=== PATIENT | male | born 1935 | race Caucasian/White ===

== ENCOUNTER → 2017-01-04 | Outpatient (REF) | payer MEDICARE, OTHER | LOC: M LAB REF 19:12 | PROVIDERS: ATTEND Surgery | DX: L72.12 Trichodermal cyst (principal) ==

== ENCOUNTER → 2018-01-10 | Outpatient (REF) | payer MEDICARE, OTHER ==
[2018-01-10 18:23] LABS: APPEARANCE, URINE CLEAR (CLEAR); BACTERIA, URINE AUTO NEGATIVE (NEGATIVE); BILIRUBIN, URINE AUTO NEGATIVE (NEGATIVE); BLOOD, URINE BLOOD NEGATIVE (NEGATIVE); COLOR, URINE YELLOW (YELLOW); GLUCOSE, URINE (UA) AUTO 3+ mg/dL (NEGATIVE); KETONE, URINE AUTO NEGATIVE (NEGATIVE); LEUKOCYTE ESTERASE, URINE AUTO NEGATIVE (NEGATIVE); MUCUS, URINE SMALL (NEGATIVE); NITRITE, URINE AUTO NEGATIVE (NEGATIVE); PROTEIN, URINE AUTO NEGATIVE (NEGATIVE); RBC, URINE AUTO 1 /HPF (0-3); SPECIFIC GRAVITY URINE AUTO 1.022 (1.002-1.035); SQUAMOUS EPITHELIAL CELL UR AU 0 /HPF (0-6); UROBILINOGEN, URINE AUTO 0.2 mg/dL (0.0-2.0); WBC, URINE AUTO 1 /HPF (0-3)
== END ==
LOC: M SMT 16:55
DX: N40.0 Benign prostatic hyperplasia without lower urinary tract symptoms (principal)
CPT/HCPCS: 81001

== ENCOUNTER → 2018-03-04 | Outpatient (REF) | payer MEDICARE ==
[2018-03-04 19:11] LABS: APPEARANCE, URINE HAZY (CLEAR); BACTERIA, URINE AUTO 1+ (NEGATIVE); BILIRUBIN, URINE AUTO NEGATIVE (NEGATIVE); BLOOD, URINE BLOOD 2+ (NEGATIVE); COLOR, URINE YELLOW (YELLOW); GLUCOSE, URINE (UA) AUTO 3+ mg/dL (NEGATIVE); KETONE, URINE AUTO NEGATIVE (NEGATIVE); LEUKOCYTE ESTERASE, URINE AUTO NEGATIVE (NEGATIVE); MUCUS, URINE SMALL (NEGATIVE); NITRITE, URINE AUTO NEGATIVE (NEGATIVE); PROTEIN, URINE AUTO NEGATIVE (NEGATIVE); RBC, URINE AUTO 10 /HPF (0-3); SPECIFIC GRAVITY URINE AUTO 1.018 (1.002-1.035); SQUAMOUS EPITHELIAL CELL UR AU 0 /HPF (0-6); UROBILINOGEN, URINE AUTO 0.2 mg/dL (0.0-2.0); WBC, URINE AUTO 4 /HPF (0-3)
== END ==
LOC: M SMT 17:06
DX: N39.0 Urinary tract infection, site not specified (principal)
CPT/HCPCS: 81001

== ENCOUNTER 2018-05-13 05:55 | Day surgery (SDC) | payer MEDICARE, BC ==
[2018-05-13] MEDS: BOTULINUM INJ 100 UNITS (J0585) As Ordered (06:45)
[2018-05-13 06:46] LABS: BEDSIDE GLUCOSE 220 MG/DL (83-110)
[2018-05-13] MEDS ORDERED: METOPROLOL SUCC *XL* 25MG TAB (TopROL *XL*) As Ordered (06:59)
[2018-05-13] MEDS ORDERED: METOPROLOL SUCC *XL* 25MG TAB (TopROL *XL*) PO (07:00)
[2018-05-13] MEDS: LR 1,000 ML IV (07:02)
[2018-05-13] MEDS ORDERED: ePHEDrine SULFATE 25 MG/5 ML(5MG/ML) SYRINGE As Ordered (08:01)
[2018-05-13] MEDS ORDERED: LIDOCAINE 2% INJ 100 MG/5 ML SDV (FOR ANES.) As Ordered (08:01)
[2018-05-13] MEDS ORDERED: PROPOFOL 200 MG/20 ML VIAL As Ordered (08:01)
[2018-05-13] MEDS ORDERED: fentaNYL 100 MCG/2 ML INJECTION (J3010) As Ordered (08:01)
[2018-05-13] MEDS ORDERED: ONDANSETRON 4MG/2ML VIAL (J2405) As Ordered (08:01)
[2018-05-13] MEDS ORDERED: PHENYLephrine HCL 500 MCG/5 ML (100MCG/ML) SYRINGE (J2370) As Ordered (08:04)
[2018-05-13 08:32] LABS: BEDSIDE GLUCOSE 210 MG/DL (83-110)
[2018-05-13] MEDS ORDERED: LR 1,000 ML IV (08:45)
[2018-05-13] MEDS ORDERED: ACETAMINOPHEN TAB 650MG DOSE (2X325MG) PO (08:45)
[2018-05-13] MEDS ORDERED: fentaNYL 100 MCG/2 ML INJECTION (J3010) IV (08:45)
[2018-05-13] MEDS ORDERED: ONDANSETRON 4MG/2ML VIAL (J2405) IV (08:45)
== END 2018-05-13 10:13 | disposition home or self-care (01) ==
LOC: M SDC 05:55
DX: N21.0 Calculus in bladder (principal); I25.10 Atherosclerotic heart disease of native coronary artery without angina pectoris; I10 Essential (primary) hypertension; E11.9 Type 2 diabetes mellitus without complications; E78.5 Hyperlipidemia, unspecified; E03.9 Hypothyroidism, unspecified; N40.0 Benign prostatic hyperplasia without lower urinary tract symptoms; Z95.1 Presence of aortocoronary bypass graft; Z79.82 Long term (current) use of aspirin; Z79.02 Long term (current) use of antithrombotics/antiplatelets
CPT/HCPCS: 52318

== ENCOUNTER → 2018-11-26 | Outpatient (REF) | payer MEDICARE, BC ==
[~2018-11-26] MED LIST: ASPI81TA85 PO; CART120C PO; DITR1TAB PO; FINA5TAB2 PO; FLOM0.4C39 PO; GLIM2TAB PO; JANU100T PO; KEFL250C11 PO; LEVO75TA4 PO; METF500T13 PO; METO1TAB32 PO; PRAD150C PO; PRAV40TA2 PO
[2018-11-26 18:35] LABS: APPEARANCE, URINE HAZY (CLEAR); BACTERIA, URINE AUTO NEGATIVE (NEGATIVE); BILIRUBIN, URINE AUTO NEGATIVE (NEGATIVE); BLOOD, URINE BLOOD NEGATIVE (NEGATIVE); CALCIUM OXALATE CRYSTALS MODERATE; COLOR, URINE YELLOW (YELLOW); GLUCOSE, URINE (UA) AUTO 1+ mg/dL (NEGATIVE); KETONE, URINE AUTO NEGATIVE (NEGATIVE); LEUKOCYTE ESTERASE, URINE AUTO 2+ (NEGATIVE); MUCUS, URINE SMALL (NEGATIVE); NITRITE, URINE AUTO NEGATIVE (NEGATIVE); PROTEIN, URINE AUTO NEGATIVE (NEGATIVE); RBC, URINE AUTO 4 /HPF (0-3); SPECIFIC GRAVITY URINE AUTO 1.023 (1.002-1.035); SQUAMOUS EPITHELIAL CELL UR AU 0 /HPF (0-6); UROBILINOGEN, URINE AUTO 0.2 mg/dL (0.0-2.0); WBC, URINE AUTO 3 /HPF (0-3)
== END ==
LOC: M SMT 17:38
PROVIDERS: ATTEND Nurse Practitioner Women's Health
DX: N40.1 Benign prostatic hyperplasia with lower urinary tract symptoms (principal)
CPT/HCPCS: 81001; 87086; G0463

== ENCOUNTER → 2020-07-22 | Outpatient (REF) | payer MEDICARE, BC ==
[~2020-07-22] MED LIST changes: -ASPI81TA85 PO; +ASPI81TA86 PO; -GLIM2TAB PO; +GLIM2TAB4 PO; -PRAD150C PO; +PRAD150C6 PO
[2020-07-22 17:34] LABS: APPEARANCE, URINE HAZY (CLEAR); BACTERIA, URINE AUTO NEGATIVE (NEGATIVE); BILIRUBIN, URINE AUTO NEGATIVE (NEGATIVE); BLOOD, URINE BLOOD NEGATIVE (NEGATIVE); CALCIUM OXALATE CRYSTALS LARGE; COLOR, URINE YELLOW (YELLOW); GLUCOSE, URINE (UA) AUTO 3+ mg/dL (NEGATIVE); KETONE, URINE AUTO NEGATIVE (NEGATIVE); LEUKOCYTE ESTERASE, URINE AUTO NEGATIVE (NEGATIVE); MUCUS, URINE SMALL (NEGATIVE); NITRITE, URINE AUTO NEGATIVE (NEGATIVE); PROTEIN, URINE AUTO NEGATIVE (NEGATIVE); RBC, URINE AUTO 2 /HPF (0-3); SQUAMOUS EPITHELIAL CELL UR AU 0 /HPF (0-6); UROBILINOGEN, URINE AUTO 0.2 mg/dL (0.0-2.0); WBC, URINE AUTO 3 /HPF (0-3)
== END ==
LOC: M SMT 16:56
PROVIDERS: ATTEND Nurse Practitioner Women's Health
DX: N40.1 Benign prostatic hyperplasia with lower urinary tract symptoms (principal)
CPT/HCPCS: 51798; 81001; 87086; G0463

== ENCOUNTER → 2022-09-01 | Outpatient (CLI) | payer MEDICARE, BC | LOC: M RAD 12:27 | PROVIDERS: ATTEND Surgery | DX: L89.610 Pressure ulcer of right heel, unstageable (principal) ==

== ENCOUNTER 2022-09-20 08:51 | Inpatient (IN) | payer MEDICARE, BC ==
[~2022-09-20] VITALS: Ht 182.9 cm; Wt 90.9 kg
[2022-09-20] MEDS ORDERED: DABI75CA (09:15)
[2022-09-20] MEDS ORDERED: SANT250O8 TOP (09:15)
[2022-09-20] MEDS ORDERED: CIPR250T3 PO (09:15)
[2022-09-20 13:27] LABS: BASO % 0.4 % (0.0-1.0); EOS # 0.1 10^3/uL (0.0-0.5); EOS % 1.2 % (0.0-3.0); HEMATOCRIT 34.4 % (42.0-52.0); HEMOGLOBIN 10.7 g/dl (13.5-17.5); LYMPH % 11.5 % (24.0-44.0); MEAN CORPUSCULAR HEMOGLOBIN 26.1 pg (27.0-33.0); MEAN CORPUSCULAR HGB CONC 31.1 g/dl (32.0-36.5); MEAN CORPUSCULAR VOLUME 83.9 fl (80.0-96.0); MONO # 0.6 10^3/uL (0.0-0.8); MONO % 7.5 % (2.0-8.0); NEUTROPHILS # 6.7 10^3/uL (1.5-8.5); PLATELET COUNT, AUTOMATED 306 10^3/uL (150-450); WHITE BLOOD COUNT 8.4 10^3/uL (4.0-10.0)
[2022-09-20 13:37] LABS: ERYTHROCYTE SEDIMENTATION RATE 82 mm/hr (0-20)
[2022-09-20 13:48] LABS: ALBUMIN 2.7 G/DL (3.2-5.2); ALKALINE PHOSPHATASE 72 U/L (46-116); ALT/SGPT 14 U/L (7.0-40); AST/SGOT 21 U/L (<34); BILIRUBIN,DIRECT 0.1 MG/DL (<0.4); BILIRUBIN,TOTAL 0.4 MG/DL (0.3-1.2); BLOOD UREA NITROGEN 25 MG/DL (9-23); CALCIUM LEVEL 8.4 MG/DL (8.3-10.6); CARBON DIOXIDE LEVEL 26 MMOL/L (20-31); CHLORIDE LEVEL 103 MMOL/L (98-107); CREATININE FOR GFR 0.69 MG/DL (0.70-1.30); GLOMERULAR FILTRATION RATE > 60.0 (>35); GLUCOSE, FASTING 216 MG/DL (74-106); POTASSIUM SERUM 4.4 MMOL/L (3.5-5.1); SODIUM LEVEL 139 MMOL/L (136-145); TOTAL PROTEIN 6.5 G/DL (5.7-8.2)
[2022-09-20 14:00] LABS: RSV AMPLIFICATION NEGATIVE (NEGATIVE)
[2022-09-20] MEDS ORDERED: VANCOMYCIN HCL 2,000 MG in D5W 500 ML IV ONE (14:05)
[2022-09-20] MEDS ORDERED: VANCOMYCIN HCL 1,000 MG, VIAL MATE ADAPTER 1 EACH in D5W 250 ML IV ONE (14:15)
[2022-09-20] MEDS ORDERED: VANCOMYCIN HCL 750 MG, VIAL MATE ADAPTER 1 EACH in D5W 250 ML IV ONE (14:15)
[2022-09-20] MEDS ORDERED: MORPHINE 4 MG/ML 1ML VIAL IV PRN (16:30)
[2022-09-20] MEDS: PIPERACILLIN/TAZOBACTAM SOD 3.375 GM in D5W MINI-BAG PLUS 50 ML IV SCH ×2 (17:15→22:48)
[2022-09-20] MEDS ORDERED: ELIQ5TAB PO (17:19)
[2022-09-20] MEDS ORDERED: METF-838 PO (17:19)
[2022-09-20] MEDS ORDERED: TOUJ1.2I SC (17:22)
[2022-09-20] MEDS ORDERED: HOME MED LIST COMPLETE! XX SCH ×2 (17:25)
[2022-09-20] MEDS ORDERED: PRAD150C6 PO (17:30)
[2022-09-20] MEDS ORDERED: LIDOCAINE 5% (LIDODERM) PATCH TD ONE (18:30)
[2022-09-20] MEDS: ACETAMINOPHEN 500 MG TAB PO SCH (19:13)
[2022-09-20] MEDS: DICLOFENAC EPOLAMINE 1.3% PATCH TOP SCH (21:00)
[2022-09-20] MEDS: TAMSULOSIN 0.4 MG CAP PO SCH (21:32)
[2022-09-20] MEDS: FINASTERIDE 5MG TAB PO SCH (21:32)
[2022-09-20] MEDS: MIRALAX *UNIT DOSE* 17GM PACKET PO SCH (21:32)
[2022-09-20] MEDS: METOPROLOL SUCC *XL* 25MG TAB (TopROL *XL*) PO SCH (21:32)
[2022-09-20] MEDS: oxyCODONE 5MG TAB PO PRN (22:49)
[2022-09-21] VITALS (7 sets, daily range): BP systolic 101–136; BP diastolic 61–82
[2022-09-21] MEDS: LEVOTHYROXINE 75MCG TABLET (0.075MG) PO SCH (05:01)
[2022-09-21] MEDS: ACETAMINOPHEN 500 MG TAB PO SCH ×4 (05:02→17:20)
[2022-09-21] MEDS: PIPERACILLIN/TAZOBACTAM SOD 3.375 GM in D5W MINI-BAG PLUS 50 ML IV SCH ×4 (05:02→21:57)
[2022-09-21 06:39] LABS: BASO % 0.5 % (0.0-1.0); EOS # 0.2 10^3/uL (0.0-0.5); EOS % 3.7 % (0.0-3.0); HEMATOCRIT 30.9 % (42.0-52.0); HEMOGLOBIN 9.7 g/dl (13.5-17.5); LYMPH # 0.9 10^3/uL (1.5-5.0); LYMPH % 14.4 % (24.0-44.0); MEAN CORPUSCULAR HEMOGLOBIN 26.1 pg (27.0-33.0); MEAN CORPUSCULAR HGB CONC 31.4 g/dl (32.0-36.5); MEAN CORPUSCULAR VOLUME 83.3 fl (80.0-96.0); MONO # 0.7 10^3/uL (0.0-0.8); MONO % 10.8 % (2.0-8.0); NEUTROPHILS # 4.4 10^3/uL (1.5-8.5); NEUTROPHILS % 70.3 % (36.0-66.0); PLATELET COUNT, AUTOMATED 251 10^3/uL (150-450); RED BLOOD COUNT 3.71 10^6/uL (4.30-6.10); WHITE BLOOD COUNT 6.2 10^3/uL (4.0-10.0)
[2022-09-21 07:15] LABS: BLOOD UREA NITROGEN 19 MG/DL (9-23); CALCIUM LEVEL 8.1 MG/DL (8.3-10.6); CARBON DIOXIDE LEVEL 26 MMOL/L (20-31); CHLORIDE LEVEL 103 MMOL/L (98-107); CREATININE FOR GFR 0.71 MG/DL (0.70-1.30); GLOMERULAR FILTRATION RATE > 60.0 (>35); GLUCOSE, FASTING 86 MG/DL (74-106); SODIUM LEVEL 138 MMOL/L (136-145)
[2022-09-21 07:25] LABS: HEMOGLOBIN A1c 8.6 % (4.0-6.0)
[2022-09-21] MEDS: DICLOFENAC EPOLAMINE 1.3% PATCH TOP SCH ×2 (09:00→21:00)
[2022-09-21] MEDS ORDERED: LEVEMIR (INSULIN DETEMIR) 1 UNITS/0.01ML SC SCH (09:00)
[2022-09-21] MEDS ORDERED: ONDANSETRON 4MG 2ML VIAL As Ordered ONE (11:00)
[2022-09-21] MEDS ORDERED: propofoL 200 MG/20 ML VIAL As Ordered ONE (11:00)
[2022-09-21] MEDS ORDERED: BUPIVACAINE HCL 0.5% 30ML VIAL As Ordered ONE (11:05)
[2022-09-21] MEDS ORDERED: LIDOCAINE 1% SDV 30ML VIAL As Ordered ONE (11:05)
[2022-09-21] MEDS ORDERED: LIDOCAINE 2% 100MG/5ML SDV (FOR ANES.) As Ordered ONE (11:18)
[2022-09-21] MEDS: MIRALAX *UNIT DOSE* 17GM PACKET PO SCH ×2 (14:00→21:00)
[2022-09-21] MEDS: ATORVASTATIN 20 MG TAB PO SCH (15:04)
[2022-09-21] MEDS: ASPIRIN 81MG CHEW TABLET PO SCH (15:04)
[2022-09-21] MEDS: GABAPENTIN 300 MG CAP PO SCH (15:04)
[2022-09-21] MEDS: METOPROLOL SUCC *XL* 25MG TAB (TopROL *XL*) PO SCH (21:00)
[2022-09-21] MEDS: INSULIN LISPRO (NovoLOG) PER UNIT SC SCH (21:00)
[2022-09-21] MEDS: LEVEMIR (INSULIN DETEMIR) 1 UNITS/0.01ML SC SCH (21:00)
[2022-09-21] MEDS ORDERED: DEXTROSE 50% 50ML SYRINGE IV PRN (21:50)
[2022-09-21] MEDS ORDERED: GLUCOSE 4GM CHEW TABLET PO PRN (21:50)
[2022-09-21] MEDS ORDERED: GLUCAGON INJ 1MG VIAL SC PRN (21:50)
[2022-09-21] MEDS: FINASTERIDE 5MG TAB PO SCH (21:56)
[2022-09-21] MEDS: TAMSULOSIN 0.4 MG CAP PO SCH (21:56)
[2022-09-22 02:00] VITALS: BP 140/67
[2022-09-22] MEDS: PIPERACILLIN/TAZOBACTAM SOD 3.375 GM in D5W MINI-BAG PLUS 50 ML IV SCH ×4 (04:48→23:45)
[2022-09-22] MEDS: LEVOTHYROXINE 75MCG TABLET (0.075MG) PO SCH (05:26)
[2022-09-22] MEDS: ACETAMINOPHEN 500 MG TAB PO SCH ×5 (05:27→23:46)
[2022-09-22 05:57] VITALS: BP 132/66
[2022-09-22 06:36] LABS: BASO % 0.4 % (0.0-1.0); EOS # 0.2 10^3/uL (0.0-0.5); EOS % 2.7 % (0.0-3.0); HEMOGLOBIN 9.7 g/dl (13.5-17.5); LYMPH % 13.2 % (24.0-44.0); MEAN CORPUSCULAR HEMOGLOBIN 25.9 pg (27.0-33.0); MEAN CORPUSCULAR HGB CONC 31.3 g/dl (32.0-36.5); MEAN CORPUSCULAR VOLUME 82.9 fl (80.0-96.0); MONO # 0.8 10^3/uL (0.0-0.8); MONO % 10.3 % (2.0-8.0); NEUTROPHILS # 5.3 10^3/uL (1.5-8.5); NEUTROPHILS % 73.1 % (36.0-66.0); PLATELET COUNT, AUTOMATED 268 10^3/uL (150-450); RED BLOOD COUNT 3.74 10^6/uL (4.30-6.10); WHITE BLOOD COUNT 7.3 10^3/uL (4.0-10.0)
[2022-09-22 07:03] LABS: BLOOD UREA NITROGEN 17 MG/DL (9-23); CARBON DIOXIDE LEVEL 26 MMOL/L (20-31); CHLORIDE LEVEL 102 MMOL/L (98-107); CREATININE FOR GFR 0.76 MG/DL (0.70-1.30); GLOMERULAR FILTRATION RATE > 60.0 (>35); GLUCOSE, FASTING 157 MG/DL (74-106); POTASSIUM SERUM 4.2 MMOL/L (3.5-5.1); SODIUM LEVEL 136 MMOL/L (136-145)
[2022-09-22 07:41] LABS: ERYTHROCYTE SEDIMENTATION RATE 44 mm/hr (0-20)
[2022-09-22] MEDS: SANTYL OINT 30GM TOP SCH (08:12)
[2022-09-22] MEDS: MIRALAX *UNIT DOSE* 17GM PACKET PO SCH ×2 (08:12→20:56)
[2022-09-22] MEDS: INSULIN LISPRO (NovoLOG) PER UNIT SC SCH ×4 (08:14→20:56)
[2022-09-22] MEDS: GABAPENTIN 300 MG CAP PO SCH (08:14)
[2022-09-22] MEDS: ASPIRIN 81MG CHEW TABLET PO SCH (08:18)
[2022-09-22] MEDS: ATORVASTATIN 20 MG TAB PO SCH (08:19)
[2022-09-22] MEDS: oxyCODONE 5MG TAB PO PRN ×2 (08:19→17:59)
[2022-09-22] MEDS: DICLOFENAC EPOLAMINE 1.3% PATCH TOP SCH ×2 (08:20→21:00)
[2022-09-22 11:25] LABS: INR 1.15; PROTHROMBIN TIME 14.9 SECONDS (12.5-14.5)
[2022-09-22 11:26] LABS: PARTIAL THROMBOPLASTIN TIME 45.5 SECONDS (24.8-34.2)
[2022-09-22] MEDS: DABIGATRAN ETEXILATE 75 MG CAP (PRADAXA) PO SCH ×2 (13:10→20:56)
[2022-09-22 14:00] VITALS: BP 132/69
[2022-09-22 20:19] VITALS: BP 125/65
[2022-09-22] MEDS: LEVEMIR (INSULIN DETEMIR) 1 UNITS/0.01ML SC SCH (20:55)
[2022-09-22] MEDS: TAMSULOSIN 0.4 MG CAP PO SCH (20:55)
[2022-09-22] MEDS: METOPROLOL SUCC *XL* 25MG TAB (TopROL *XL*) PO SCH (20:56)
[2022-09-22] MEDS: FINASTERIDE 5MG TAB PO SCH (20:56)
[2022-09-23 05:26] VITALS: BP 142/67
[2022-09-23] MEDS: PIPERACILLIN/TAZOBACTAM SOD 3.375 GM in D5W MINI-BAG PLUS 50 ML IV SCH ×4 (05:40→23:09)
[2022-09-23] MEDS: LEVOTHYROXINE 75MCG TABLET (0.075MG) PO SCH (05:40)
[2022-09-23] MEDS: ACETAMINOPHEN 500 MG TAB PO SCH ×4 (05:41→23:09)
[2022-09-23 06:42] LABS: BASO % 0.1 % (0.0-1.0); EOS # 0.1 10^3/uL (0.0-0.5); EOS % 1.7 % (0.0-3.0); HEMATOCRIT 30.9 % (42.0-52.0); HEMOGLOBIN 9.8 g/dl (13.5-17.5); LYMPH % 13.1 % (24.0-44.0); MEAN CORPUSCULAR HEMOGLOBIN 26.2 pg (27.0-33.0); MEAN CORPUSCULAR HGB CONC 31.7 g/dl (32.0-36.5); MEAN CORPUSCULAR VOLUME 82.6 fl (80.0-96.0); MONO # 0.9 10^3/uL (0.0-0.8); NEUTROPHILS # 5.7 10^3/uL (1.5-8.5); NEUTROPHILS % 73.7 % (36.0-66.0); PLATELET COUNT, AUTOMATED 276 10^3/uL (150-450); RED BLOOD COUNT 3.74 10^6/uL (4.30-6.10); WHITE BLOOD COUNT 7.8 10^3/uL (4.0-10.0)
[2022-09-23 07:05] LABS: BLOOD UREA NITROGEN 14 MG/DL (9-23); CALCIUM LEVEL 8.1 MG/DL (8.3-10.6); CARBON DIOXIDE LEVEL 23 MMOL/L (20-31); CHLORIDE LEVEL 102 MMOL/L (98-107); CREATININE FOR GFR 0.67 MG/DL (0.70-1.30); GLOMERULAR FILTRATION RATE > 60.0 (>35); GLUCOSE, FASTING 171 MG/DL (74-106); SODIUM LEVEL 135 MMOL/L (136-145)
[2022-09-23] MEDS: ASPIRIN 81MG CHEW TABLET PO SCH (08:09)
[2022-09-23] MEDS: ATORVASTATIN 20 MG TAB PO SCH (08:09)
[2022-09-23] MEDS: INSULIN LISPRO (NovoLOG) PER UNIT SC SCH ×4 (08:09→21:00)
[2022-09-23] MEDS: DABIGATRAN ETEXILATE 75 MG CAP (PRADAXA) PO SCH (08:09)
[2022-09-23] MEDS: DICLOFENAC EPOLAMINE 1.3% PATCH TOP SCH ×2 (08:10→21:00)
[2022-09-23] MEDS: GABAPENTIN 300 MG CAP PO SCH (08:10)
[2022-09-23] MEDS: MIRALAX *UNIT DOSE* 17GM PACKET PO SCH ×2 (08:11→20:53)
[2022-09-23 10:15] VITALS: BP 133/67
[2022-09-23 14:30] VITALS: BP 139/66
[2022-09-23] MEDS: TAMSULOSIN 0.4 MG CAP PO SCH (20:46)
[2022-09-23] MEDS: LEVEMIR (INSULIN DETEMIR) 1 UNITS/0.01ML SC SCH (20:46)
[2022-09-23] MEDS: FINASTERIDE 5MG TAB PO SCH (20:46)
[2022-09-23] MEDS: METOPROLOL SUCC *XL* 25MG TAB (TopROL *XL*) PO SCH (20:48)
[2022-09-23 22:00] VITALS: BP 136/66
[2022-09-24] MEDS: PIPERACILLIN/TAZOBACTAM SOD 3.375 GM in D5W MINI-BAG PLUS 50 ML IV SCH ×3 (05:04→17:38)
[2022-09-24] MEDS: ACETAMINOPHEN 500 MG TAB PO SCH ×3 (05:05→17:38)
[2022-09-24] MEDS: LEVOTHYROXINE 75MCG TABLET (0.075MG) PO SCH (05:05)
[2022-09-24 05:15] LABS: BASO % 0.2 % (0.0-1.0); EOS # 0.2 10^3/uL (0.0-0.5); EOS % 2.7 % (0.0-3.0); HEMOGLOBIN 9.7 g/dl (13.5-17.5); LYMPH % 11.6 % (24.0-44.0); MEAN CORPUSCULAR HEMOGLOBIN 25.9 pg (27.0-33.0); MEAN CORPUSCULAR HGB CONC 31.3 g/dl (32.0-36.5); MEAN CORPUSCULAR VOLUME 82.7 fl (80.0-96.0); MONO # 0.7 10^3/uL (0.0-0.8); MONO % 8.2 % (2.0-8.0); NEUTROPHILS # 6.3 10^3/uL (1.5-8.5); NEUTROPHILS % 76.8 % (36.0-66.0); PLATELET COUNT, AUTOMATED 272 10^3/uL (150-450); RED BLOOD COUNT 3.75 10^6/uL (4.30-6.10); WHITE BLOOD COUNT 8.2 10^3/uL (4.0-10.0)
[2022-09-24 05:34] LABS: ERYTHROCYTE SEDIMENTATION RATE 77 mm/hr (0-20)
[2022-09-24 05:47] LABS: BLOOD UREA NITROGEN 18 MG/DL (9-23); CALCIUM LEVEL 7.8 MG/DL (8.3-10.6); CARBON DIOXIDE LEVEL 28 MMOL/L (20-31); CHLORIDE LEVEL 102 MMOL/L (98-107); CREATININE FOR GFR 0.68 MG/DL (0.70-1.30); GLOMERULAR FILTRATION RATE > 60.0 (>35); GLUCOSE, FASTING 197 MG/DL (74-106); POTASSIUM SERUM 4.4 MMOL/L (3.5-5.1); SODIUM LEVEL 136 MMOL/L (136-145)
[2022-09-24 06:00] VITALS: BP 132/83
[2022-09-24] MEDS ORDERED: LevoFLOXacin 750 MG TABLET PO SCH (06:00)
[2022-09-24] MEDS: INSULIN LISPRO (NovoLOG) PER UNIT SC SCH ×4 (08:26→20:36)
[2022-09-24] MEDS: MIRALAX *UNIT DOSE* 17GM PACKET PO SCH ×2 (08:27→20:50)
[2022-09-24] MEDS: GABAPENTIN 300 MG CAP PO SCH (08:27)
[2022-09-24] MEDS: SANTYL OINT 30GM TOP SCH (08:27)
[2022-09-24] MEDS: ATORVASTATIN 20 MG TAB PO SCH (08:27)
[2022-09-24] MEDS: DICLOFENAC EPOLAMINE 1.3% PATCH TOP SCH ×2 (08:27→20:51)
[2022-09-24] MEDS: METAMUCIL (PSYLLIUM) PACKET PO SCH ×2 (09:00→20:50)
[2022-09-24] MEDS ORDERED: metroNIDAZOLE (FLAGYL) 500MG TABLET PO SCH (09:00)
[2022-09-24] MEDS ORDERED: ISOVUE-370 76% 100ML VIAL As Ordered ONE (09:55)
[2022-09-24] MEDS ORDERED: VANCOMYCIN HCL IV SCH (11:45)
[2022-09-24] MEDS ORDERED: FLUID PLACE HOLDER IV SCH (11:45)
[2022-09-24] MEDS ORDERED: SENNA 8.6 MG TAB (SENOKOT) PO PRN (11:55)
[2022-09-24 14:30] VITALS: BP 122/53
[2022-09-24] MEDS ORDERED: VANCOMYCIN HCL 1,000 MG, VIAL MATE ADAPTER 1 EACH in D5W 250 ML IV ONE (15:00)
[2022-09-24] MEDS: VANCOMYCIN HCL 1,000 MG, VIAL MATE ADAPTER 1 EACH in D5W 250 ML IV SCH (20:44)
[2022-09-24] MEDS: FINASTERIDE 5MG TAB PO SCH (20:45)
[2022-09-24] MEDS: LEVEMIR (INSULIN DETEMIR) 1 UNITS/0.01ML SC SCH (20:45)
[2022-09-24] MEDS: TAMSULOSIN 0.4 MG CAP PO SCH (20:46)
[2022-09-24] MEDS: METOPROLOL SUCC *XL* 25MG TAB (TopROL *XL*) PO SCH (20:50)
[2022-09-24 22:00] VITALS: BP 125/63
[2022-09-24] MEDS: oxyCODONE 5MG TAB PO PRN (22:18)
[2022-09-25] MEDS: ACETAMINOPHEN 500 MG TAB PO SCH ×4 (00:47→17:06)
[2022-09-25] MEDS: PIPERACILLIN/TAZOBACTAM SOD 3.375 GM in D5W MINI-BAG PLUS 50 ML IV SCH ×4 (00:48→17:07)
[2022-09-25] MEDS: LEVOTHYROXINE 75MCG TABLET (0.075MG) PO SCH (05:38)
[2022-09-25 06:00] VITALS: BP 127/63
[2022-09-25 07:23] LABS: BASO % 0.3 % (0.0-1.0); EOS # 0.2 10^3/uL (0.0-0.5); HEMATOCRIT 28.9 % (42.0-52.0); LYMPH # 1.1 10^3/uL (1.5-5.0); LYMPH % 18.4 % (24.0-44.0); MEAN CORPUSCULAR HEMOGLOBIN 25.9 pg (27.0-33.0); MEAN CORPUSCULAR HGB CONC 31.1 g/dl (32.0-36.5); MONO # 0.5 10^3/uL (0.0-0.8); MONO % 9.4 % (2.0-8.0); NEUTROPHILS # 3.9 10^3/uL (1.5-8.5); NEUTROPHILS % 67.6 % (36.0-66.0); PLATELET COUNT, AUTOMATED 272 10^3/uL (150-450); RED BLOOD COUNT 3.48 10^6/uL (4.30-6.10); WHITE BLOOD COUNT 5.8 10^3/uL (4.0-10.0)
[2022-09-25 07:55] LABS: BLOOD UREA NITROGEN 14 MG/DL (9-23); CALCIUM LEVEL 7.9 MG/DL (8.3-10.6); CARBON DIOXIDE LEVEL 24 MMOL/L (20-31); CHLORIDE LEVEL 103 MMOL/L (98-107); CREATININE FOR GFR 0.63 MG/DL (0.70-1.30); GLOMERULAR FILTRATION RATE > 60.0 (>35); GLUCOSE, FASTING 247 MG/DL (74-106); POTASSIUM SERUM 4.6 MMOL/L (3.5-5.1); SODIUM LEVEL 137 MMOL/L (136-145)
[2022-09-25] MEDS: GABAPENTIN 300 MG CAP PO SCH (08:31)
[2022-09-25] MEDS: ATORVASTATIN 20 MG TAB PO SCH (08:31)
[2022-09-25] MEDS: VANCOMYCIN HCL 1,000 MG, VIAL MATE ADAPTER 1 EACH in D5W 250 ML IV SCH ×2 (08:32→20:37)
[2022-09-25] MEDS: INSULIN LISPRO (NovoLOG) PER UNIT SC SCH ×4 (08:32→20:35)
[2022-09-25] MEDS: DICLOFENAC EPOLAMINE 1.3% PATCH TOP SCH ×2 (08:32→20:35)
[2022-09-25] MEDS: MIRALAX *UNIT DOSE* 17GM PACKET PO SCH ×2 (08:33→20:52)
[2022-09-25] MEDS: METAMUCIL (PSYLLIUM) PACKET PO SCH ×2 (08:33→20:52)
[2022-09-25 14:00] VITALS: BP 132/68
[2022-09-25] MEDS: LEVEMIR (INSULIN DETEMIR) 1 UNITS/0.01ML SC SCH (20:34)
[2022-09-25] MEDS: METOPROLOL SUCC *XL* 25MG TAB (TopROL *XL*) PO SCH (20:35)
[2022-09-25] MEDS: TAMSULOSIN 0.4 MG CAP PO SCH (20:35)
[2022-09-25] MEDS: FINASTERIDE 5MG TAB PO SCH (20:35)
[2022-09-25] MEDS: NYSTATIN 100,000 UNITS/GM TOPICAL PWD 15GM TOP SCH (20:36)
[2022-09-25 22:05] VITALS: BP 133/69
[2022-09-26] MEDS: PIPERACILLIN/TAZOBACTAM SOD 3.375 GM in D5W MINI-BAG PLUS 50 ML IV SCH ×3 (00:41→12:47)
[2022-09-26] MEDS: ACETAMINOPHEN 500 MG TAB PO SCH ×3 (00:41→12:46)
[2022-09-26 05:05] VITALS: BP 139/63
[2022-09-26] MEDS: LEVOTHYROXINE 75MCG TABLET (0.075MG) PO SCH (05:24)
[2022-09-26 07:17] LABS: BASO % 0.4 % (0.0-1.0); EOS # 0.2 10^3/uL (0.0-0.5); HEMOGLOBIN 9.7 g/dl (13.5-17.5); MEAN CORPUSCULAR HEMOGLOBIN 25.9 pg (27.0-33.0); MEAN CORPUSCULAR HGB CONC 31.3 g/dl (32.0-36.5); MEAN CORPUSCULAR VOLUME 82.9 fl (80.0-96.0); MONO # 0.6 10^3/uL (0.0-0.8); MONO % 7.9 % (2.0-8.0); NEUTROPHILS # 5.1 10^3/uL (1.5-8.5); NEUTROPHILS % 73.3 % (36.0-66.0); PLATELET COUNT, AUTOMATED 303 10^3/uL (150-450); RED BLOOD COUNT 3.74 10^6/uL (4.30-6.10); WHITE BLOOD COUNT 6.9 10^3/uL (4.0-10.0)
[2022-09-26 07:36] LABS: VANCOMYCIN LEVEL TROUGH 12.4 UG/ML (10.0-20.0)
[2022-09-26 07:37] LABS: BLOOD UREA NITROGEN 12 MG/DL (9-23); CALCIUM LEVEL 8.3 MG/DL (8.3-10.6); CARBON DIOXIDE LEVEL 28 MMOL/L (20-31); CHLORIDE LEVEL 102 MMOL/L (98-107); CREATININE FOR GFR 0.68 MG/DL (0.70-1.30); GLOMERULAR FILTRATION RATE > 60.0 (>35); GLUCOSE, FASTING 213 MG/DL (74-106); POTASSIUM SERUM 4.4 MMOL/L (3.5-5.1); SODIUM LEVEL 137 MMOL/L (136-145)
[2022-09-26 07:44] LABS: ERYTHROCYTE SEDIMENTATION RATE 59 mm/hr (0-20)
[2022-09-26] MEDS: MIRALAX *UNIT DOSE* 17GM PACKET PO SCH (09:00)
[2022-09-26] MEDS: METAMUCIL (PSYLLIUM) PACKET PO SCH (09:00)
[2022-09-26] MEDS: VANCOMYCIN HCL 1,000 MG, VIAL MATE ADAPTER 1 EACH in D5W 250 ML IV SCH (09:23)
[2022-09-26] MEDS: INSULIN LISPRO (NovoLOG) PER UNIT SC SCH ×2 (09:23→12:47)
[2022-09-26] MEDS: GABAPENTIN 300 MG CAP PO SCH (09:25)
[2022-09-26 09:28] VITALS: BP 140/78
[2022-09-26] MEDS: ATORVASTATIN 20 MG TAB PO SCH (09:28)
[2022-09-26] MEDS: DICLOFENAC EPOLAMINE 1.3% PATCH TOP SCH (09:30)
[2022-09-26] MEDS: NYSTATIN 100,000 UNITS/GM TOPICAL PWD 15GM TOP SCH (09:33)
[2022-09-26] MEDS ORDERED: INSUDET SC (13:36)
[2022-09-26] MEDS ORDERED: GABA-282 PO (13:36)
[2022-09-26] MEDS ORDERED: OXYC-517 PO (13:36)
[2022-09-26] MEDS ORDERED: LEVO1TAB40 PO (13:38)
[2022-09-26] MEDS ORDERED: METR-265 PO (13:38)
[2022-09-26 14:00] VITALS: BP 140/75
[2022-09-26] MEDS ORDERED: metroNIDAZOLE (FLAGYL) 500MG TABLET PO SCH (14:00)
[2022-09-26] MEDS: SANTYL OINT 30GM TOP SCH (14:42)
[2022-09-26] MEDS ORDERED: LevoFLOXacin 750 MG TABLET PO SCH (18:00)
== END 2022-09-26 16:45 | DRG 622 ==
LOC: M ED 08:51 → M ED INP 16:12 → M MS5PR 09-21 13:52
PROVIDERS: ADMIT Student in an Organized Health Care Education/Training Program; ATTEND Family Medicine
PROC: 0YBN0ZZ Excision of Left Foot, Open Approach (ICD-10-PCS; 2022-09-21)
PROC: 0LBW0ZZ Excision of Left Foot Tendon, Open Approach (ICD-10-PCS; principal; 2022-09-21 07:30)
DX: E11.69 Type 2 diabetes mellitus with other specified complication (principal); L89.613 Pressure ulcer of right heel, stage 3; M86.172 Other acute osteomyelitis, left ankle and foot; L89.620 Pressure ulcer of left heel, unstageable; L89.892 Pressure ulcer of other site, stage 2; E11.622 Type 2 diabetes mellitus with other skin ulcer; E11.51 Type 2 diabetes mellitus with diabetic peripheral angiopathy without gangrene; E11.40 Type 2 diabetes mellitus with diabetic neuropathy, unspecified; I10 Essential (primary) hypertension; E03.9 Hypothyroidism, unspecified; I25.10 Atherosclerotic heart disease of native coronary artery without angina pectoris; I48.91 Unspecified atrial fibrillation; E78.00 Pure hypercholesterolemia, unspecified; N40.1 Benign prostatic hyperplasia with lower urinary tract symptoms; Z96.653 Presence of artificial knee joint, bilateral; Z95.1 Presence of aortocoronary bypass graft; Z66 Do not resuscitate; E11.621 Type 2 diabetes mellitus with foot ulcer; R31.9 Hematuria, unspecified; K59.00 Constipation, unspecified; N20.0 Calculus of kidney; Z79.84 Long term (current) use of oral hypoglycemic drugs; Z79.899 Other long term (current) drug therapy

== ENCOUNTER 2022-09-26 13:34 | Inpatient (IN) | payer MEDICARE, BC ==
[~2022-09-26] VITALS: Ht 182.9 cm; Wt 91.7 kg
[~2022-09-26 13:34] MED LIST changes: +CIPR250T3 PO; +DABI75CA; +ELIQ5TAB PO; +METF-838 PO; +SANT250O8 TOP; +TOUJ1.2I SC
[2022-09-26] MEDS ORDERED: GABA-282 PO (13:36)
[2022-09-26] MEDS ORDERED: OXYC-517 PO (13:36)
[2022-09-26] MEDS ORDERED: INSUDET SC (13:36)
[2022-09-26] MEDS ORDERED: METR-265 PO (13:38)
[2022-09-26] MEDS ORDERED: LEVO1TAB40 PO (13:38)
[2022-09-26] MEDS ORDERED: ONDANSETRON 4MG TAB PO PRN ×2 (15:15→17:00)
[2022-09-26] MEDS ORDERED: metroNIDAZOLE (FLAGYL) 500MG TABLET PO SCH (15:15)
[2022-09-26] MEDS ORDERED: oxyCODONE 5MG TAB PO PRN ×2 (15:15→17:00)
[2022-09-26] MEDS ORDERED: GLUCAGON INJ 1MG VIAL SC PRN (15:15)
[2022-09-26] MEDS ORDERED: GLUCOSE 4GM CHEW TABLET PO PRN (15:15)
[2022-09-26] MEDS ORDERED: DEXTROSE 50% 50ML SYRINGE IV PRN (15:15)
[2022-09-26 16:45] VITALS: BP 162/74
[2022-09-26] MEDS ORDERED: INSULIN LISPRO (NovoLOG) PER UNIT SC SCH ×2 (17:30→21:00)
[2022-09-26] MEDS ORDERED: HOME MED LIST COMPLETE! XX SCH (17:55)
[2022-09-26] MEDS ORDERED: LACTOBACILLUS ACIDOPHILUS CAP (BACID) PO SCH (18:00)
[2022-09-26] MEDS ORDERED: LevoFLOXacin 750 MG TABLET PO SCH (18:00)
[2022-09-26] MEDS ORDERED: PILL CUTTER 1 EACH XX PRN (18:10)
[2022-09-26] MEDS: LACTOBACILLUS ACIDOPHILUS CAP (BACID) PO SCH ×2 (18:18→21:03)
[2022-09-26] MEDS: LevoFLOXacin 750 MG TABLET PO SCH (18:18)
[2022-09-26 20:23] VITALS: BP 152/70
[2022-09-26] MEDS ORDERED: METOPROLOL SUCC *XL* 25MG TAB (TopROL *XL*) PO SCH (21:00)
[2022-09-26] MEDS: DOCUSATE SODIUM 100MG CAPSULE PO SCH (21:00)
[2022-09-26] MEDS ORDERED: LEVEMIR (INSULIN DETEMIR) 1 UNITS/0.01ML SC SCH (21:00)
[2022-09-26] MEDS ORDERED: TAMSULOSIN 0.4 MG CAP PO SCH (21:00)
[2022-09-26] MEDS ORDERED: DABIGATRAN ETEXILATE 75 MG CAP (PRADAXA) PO SCH (21:00)
[2022-09-26] MEDS: INSULIN LISPRO (NovoLOG) PER UNIT SC SCH (21:00)
[2022-09-26] MEDS ORDERED: SENNA 8.6 MG TAB (SENOKOT) PO SCH (21:00)
[2022-09-26] MEDS: ACETAMINOPHEN 500 MG TAB PO SCH (21:03)
[2022-09-26] MEDS: DABIGATRAN ETEXILATE 75 MG CAP (PRADAXA) PO SCH (21:03)
[2022-09-26] MEDS: TAMSULOSIN 0.4 MG CAP PO SCH (21:03)
[2022-09-26] MEDS: FINASTERIDE 5MG TAB PO SCH (21:04)
[2022-09-26] MEDS: METOPROLOL SUCC *XL* 25MG TAB (TopROL *XL*) PO SCH (21:04)
[2022-09-26] MEDS: SENNA 8.6 MG TAB (SENOKOT) PO SCH (21:05)
[2022-09-26] MEDS: DICLOFENAC EPOLAMINE 1.3% PATCH TOP SCH (21:05)
[2022-09-26] MEDS: NYSTATIN 100,000 UNITS/GM TOPICAL PWD 15GM TOP SCH (21:06)
[2022-09-26] MEDS: metroNIDAZOLE (FLAGYL) 500MG TABLET PO SCH (21:07)
[2022-09-27 04:53] VITALS: BP 141/68
[2022-09-27] MEDS: LEVOTHYROXINE 75MCG TABLET (0.075MG) PO SCH (05:54)
[2022-09-27] MEDS: metroNIDAZOLE (FLAGYL) 500MG TABLET PO SCH ×3 (05:54→21:06)
[2022-09-27] MEDS ORDERED: LEVOTHYROXINE 75MCG TABLET (0.075MG) PO SCH (06:00)
[2022-09-27] MEDS: ATORVASTATIN 20 MG TAB PO SCH (08:37)
[2022-09-27] MEDS: LACTOBACILLUS ACIDOPHILUS CAP (BACID) PO SCH ×4 (08:37→21:06)
[2022-09-27] MEDS: PANTOPRAZOLE 40MG TAB (PROTONIX) PO SCH (08:38)
[2022-09-27] MEDS: DABIGATRAN ETEXILATE 75 MG CAP (PRADAXA) PO SCH (08:38)
[2022-09-27] MEDS: ACETAMINOPHEN 500 MG TAB PO SCH ×3 (08:38→21:08)
[2022-09-27] MEDS: GABAPENTIN 300 MG CAP PO SCH (08:38)
[2022-09-27] MEDS: DOCUSATE SODIUM 100MG CAPSULE PO SCH ×2 (08:39→19:44)
[2022-09-27] MEDS: MIRALAX *UNIT DOSE* 17GM PACKET PO SCH (08:40)
[2022-09-27] MEDS: DICLOFENAC EPOLAMINE 1.3% PATCH TOP SCH ×2 (08:40→21:08)
[2022-09-27] MEDS: NYSTATIN 100,000 UNITS/GM TOPICAL PWD 15GM TOP SCH ×2 (08:41→21:08)
[2022-09-27] MEDS: INSULIN LISPRO (NovoLOG) PER UNIT SC SCH ×4 (08:43→20:38)
[2022-09-27] MEDS ORDERED: MIRALAX *UNIT DOSE* 17GM PACKET PO SCH (09:00)
[2022-09-27] MEDS ORDERED: PANTOPRAZOLE 40MG TAB (PROTONIX) PO SCH (09:00)
[2022-09-27 11:16] LABS: HEMATOCRIT 32.9 % (42.0-52.0); HEMOGLOBIN 10.2 g/dl (13.5-17.5)
[2022-09-27 14:00] VITALS: BP 131/62
[2022-09-27 16:16] LABS: BASO % 0.2 % (0.0-1.0); EOS # 0.2 10^3/uL (0.0-0.5); EOS % 2.6 % (0.0-3.0); HEMATOCRIT 30.9 % (42.0-52.0); HEMOGLOBIN 9.6 g/dl (13.5-17.5); LYMPH # 1.3 10^3/uL (1.5-5.0); LYMPH % 15.2 % (24.0-44.0); MEAN CORPUSCULAR HEMOGLOBIN 25.7 pg (27.0-33.0); MEAN CORPUSCULAR HGB CONC 31.1 g/dl (32.0-36.5); MEAN CORPUSCULAR VOLUME 82.6 fl (80.0-96.0); MONO # 0.8 10^3/uL (0.0-0.8); MONO % 8.9 % (2.0-8.0); NEUTROPHILS # 6.1 10^3/uL (1.5-8.5); NEUTROPHILS % 72.6 % (36.0-66.0); PLATELET COUNT, AUTOMATED 335 10^3/uL (150-450); RED BLOOD COUNT 3.74 10^6/uL (4.30-6.10); WHITE BLOOD COUNT 8.4 10^3/uL (4.0-10.0)
[2022-09-27 16:48] LABS: BLOOD UREA NITROGEN 19 MG/DL (9-23); CALCIUM LEVEL 8.4 MG/DL (8.3-10.6); CARBON DIOXIDE LEVEL 28 MMOL/L (20-31); CHLORIDE LEVEL 101 MMOL/L (98-107); CREATININE FOR GFR 0.81 MG/DL (0.70-1.30); GLOMERULAR FILTRATION RATE > 60.0 (>35); GLUCOSE, FASTING 238 MG/DL (74-106); POTASSIUM SERUM 4.4 MMOL/L (3.5-5.1); SODIUM LEVEL 138 MMOL/L (136-145)
[2022-09-27] MEDS: LevoFLOXacin 750 MG TABLET PO SCH (17:26)
[2022-09-27] MEDS: SENNA 8.6 MG TAB (SENOKOT) PO SCH (19:44)
[2022-09-27 20:00] VITALS: BP 121/77
[2022-09-27] MEDS: TAMSULOSIN 0.4 MG CAP PO SCH (21:06)
[2022-09-27] MEDS: FINASTERIDE 5MG TAB PO SCH (21:06)
[2022-09-27] MEDS: LEVEMIR (INSULIN DETEMIR) 1 UNITS/0.01ML SC SCH (21:06)
[2022-09-27] MEDS: METOPROLOL SUCC *XL* 25MG TAB (TopROL *XL*) PO SCH (21:07)
[2022-09-28] MEDS: metroNIDAZOLE (FLAGYL) 500MG TABLET PO SCH ×3 (05:29→21:03)
[2022-09-28] MEDS: LEVOTHYROXINE 75MCG TABLET (0.075MG) PO SCH (05:29)
[2022-09-28 05:59] VITALS: BP 130/63
[2022-09-28] MEDS: MIRALAX *UNIT DOSE* 17GM PACKET PO SCH (07:36)
[2022-09-28] MEDS: DOCUSATE SODIUM 100MG CAPSULE PO SCH ×2 (07:36→20:58)
[2022-09-28] MEDS: INSULIN LISPRO (NovoLOG) PER UNIT SC SCH ×4 (07:44→21:00)
[2022-09-28] MEDS: LACTOBACILLUS ACIDOPHILUS CAP (BACID) PO SCH ×4 (07:45→21:03)
[2022-09-28] MEDS: GABAPENTIN 300 MG CAP PO SCH (07:45)
[2022-09-28] MEDS: metFORMIN (GLUCOPHAGE) 500MG TAB PO SCH (07:45)
[2022-09-28] MEDS: PANTOPRAZOLE 40MG TAB (PROTONIX) PO SCH (07:45)
[2022-09-28] MEDS: ATORVASTATIN 20 MG TAB PO SCH (07:45)
[2022-09-28] MEDS: ACETAMINOPHEN 500 MG TAB PO SCH ×3 (07:45→21:04)
[2022-09-28] MEDS: HEPARIN SOD (PORCINE) 5000UNITS/ML 1ML VIAL/SYRINGE SQ SCH ×2 (07:46→21:05)
[2022-09-28] MEDS: DICLOFENAC EPOLAMINE 1.3% PATCH TOP SCH ×2 (07:46→21:03)
[2022-09-28] MEDS: NYSTATIN 100,000 UNITS/GM TOPICAL PWD 15GM TOP SCH ×2 (07:47→21:05)
[2022-09-28] MEDS: SANTYL OINT 30GM TOP SCH (07:47)
[2022-09-28 14:00] VITALS: BP 130/60
[2022-09-28] MEDS: LevoFLOXacin 750 MG TABLET PO SCH (17:23)
[2022-09-28 20:00] VITALS: BP 126/57
[2022-09-28] MEDS: SENNA 8.6 MG TAB (SENOKOT) PO SCH (20:58)
[2022-09-28] MEDS: METOPROLOL SUCC *XL* 25MG TAB (TopROL *XL*) PO SCH (21:03)
[2022-09-28] MEDS: FINASTERIDE 5MG TAB PO SCH (21:03)
[2022-09-28] MEDS: TAMSULOSIN 0.4 MG CAP PO SCH (21:03)
[2022-09-28] MEDS: LEVEMIR (INSULIN DETEMIR) 1 UNITS/0.01ML SC SCH (21:04)
[2022-09-29] MEDS: LEVOTHYROXINE 75MCG TABLET (0.075MG) PO SCH (05:26)
[2022-09-29] MEDS: metroNIDAZOLE (FLAGYL) 500MG TABLET PO SCH ×3 (05:26→20:34)
[2022-09-29 05:59] VITALS: BP 148/67
[2022-09-29 06:05] LABS: BASO % 0.6 % (0.0-1.0); EOS # 0.2 10^3/uL (0.0-0.5); EOS % 2.7 % (0.0-3.0); HEMATOCRIT 30.5 % (42.0-52.0); HEMOGLOBIN 9.5 g/dl (13.5-17.5); LYMPH # 1.3 10^3/uL (1.5-5.0); MEAN CORPUSCULAR HEMOGLOBIN 25.7 pg (27.0-33.0); MEAN CORPUSCULAR HGB CONC 31.1 g/dl (32.0-36.5); MEAN CORPUSCULAR VOLUME 82.7 fl (80.0-96.0); MONO # 0.6 10^3/uL (0.0-0.8); MONO % 9.1 % (2.0-8.0); NEUTROPHILS # 4.2 10^3/uL (1.5-8.5); NEUTROPHILS % 66.1 % (36.0-66.0); PLATELET COUNT, AUTOMATED 334 10^3/uL (150-450); RED BLOOD COUNT 3.69 10^6/uL (4.30-6.10); WHITE BLOOD COUNT 6.3 10^3/uL (4.0-10.0)
[2022-09-29 06:29] LABS: BLOOD UREA NITROGEN 20 MG/DL (9-23); CALCIUM LEVEL 8.3 MG/DL (8.3-10.6); CARBON DIOXIDE LEVEL 28 MMOL/L (20-31); CHLORIDE LEVEL 103 MMOL/L (98-107); CREATININE FOR GFR 0.72 MG/DL (0.70-1.30); GLOMERULAR FILTRATION RATE > 60.0 (>35); GLUCOSE, FASTING 199 MG/DL (74-106); POTASSIUM SERUM 4.4 MMOL/L (3.5-5.1); SODIUM LEVEL 138 MMOL/L (136-145)
[2022-09-29] MEDS: DOCUSATE SODIUM 100MG CAPSULE PO SCH ×2 (08:42→20:27)
[2022-09-29] MEDS: ACETAMINOPHEN 500 MG TAB PO SCH ×3 (08:42→20:25)
[2022-09-29] MEDS: ATORVASTATIN 20 MG TAB PO SCH (08:43)
[2022-09-29] MEDS: GABAPENTIN 300 MG CAP PO SCH (08:43)
[2022-09-29] MEDS: LACTOBACILLUS ACIDOPHILUS CAP (BACID) PO SCH ×4 (08:43→20:27)
[2022-09-29] MEDS: metFORMIN (GLUCOPHAGE) 500MG TAB PO SCH (08:43)
[2022-09-29] MEDS: HEPARIN SOD (PORCINE) 5000UNITS/ML 1ML VIAL/SYRINGE SQ SCH ×2 (08:44→20:26)
[2022-09-29] MEDS: NYSTATIN 100,000 UNITS/GM TOPICAL PWD 15GM TOP SCH ×2 (08:44→20:27)
[2022-09-29] MEDS: PANTOPRAZOLE 40MG TAB (PROTONIX) PO SCH (08:44)
[2022-09-29] MEDS: MIRALAX *UNIT DOSE* 17GM PACKET PO SCH (08:45)
[2022-09-29] MEDS: INSULIN LISPRO (NovoLOG) PER UNIT SC SCH ×4 (08:45→20:25)
[2022-09-29] MEDS: DICLOFENAC EPOLAMINE 1.3% PATCH TOP SCH ×2 (08:45→20:27)
[2022-09-29 14:00] VITALS: BP 118/65
[2022-09-29] MEDS: LevoFLOXacin 750 MG TABLET PO SCH (17:15)
[2022-09-29 20:00] VITALS: BP 138/65
[2022-09-29] MEDS: LEVEMIR (INSULIN DETEMIR) 1 UNITS/0.01ML SC SCH (20:24)
[2022-09-29] MEDS: FINASTERIDE 5MG TAB PO SCH (20:25)
[2022-09-29] MEDS: METOPROLOL SUCC *XL* 25MG TAB (TopROL *XL*) PO SCH (20:26)
[2022-09-29] MEDS: TAMSULOSIN 0.4 MG CAP PO SCH (20:26)
[2022-09-29] MEDS: SENNA 8.6 MG TAB (SENOKOT) PO SCH (20:28)
[2022-09-30] MEDS: LEVOTHYROXINE 75MCG TABLET (0.075MG) PO SCH (05:54)
[2022-09-30] MEDS: metroNIDAZOLE (FLAGYL) 500MG TABLET PO SCH ×3 (05:54→21:11)
[2022-09-30 06:00] VITALS: BP 148/75
[2022-09-30] MEDS: DICLOFENAC EPOLAMINE 1.3% PATCH TOP SCH ×2 (08:54→21:12)
[2022-09-30] MEDS: ATORVASTATIN 20 MG TAB PO SCH (08:55)
[2022-09-30] MEDS: metFORMIN (GLUCOPHAGE) 500MG TAB PO SCH (08:55)
[2022-09-30] MEDS: GABAPENTIN 300 MG CAP PO SCH (08:55)
[2022-09-30] MEDS: LACTOBACILLUS ACIDOPHILUS CAP (BACID) PO SCH ×4 (08:55→21:11)
[2022-09-30] MEDS: INSULIN LISPRO (NovoLOG) PER UNIT SC SCH ×4 (08:55→21:00)
[2022-09-30] MEDS: PANTOPRAZOLE 40MG TAB (PROTONIX) PO SCH (08:56)
[2022-09-30] MEDS: ACETAMINOPHEN 500 MG TAB PO SCH ×3 (08:56→21:11)
[2022-09-30] MEDS: HEPARIN SOD (PORCINE) 5000UNITS/ML 1ML VIAL/SYRINGE SQ SCH ×2 (08:56→21:12)
[2022-09-30] MEDS: SANTYL OINT 30GM TOP SCH (08:57)
[2022-09-30] MEDS: DOCUSATE SODIUM 100MG CAPSULE PO SCH ×2 (08:57→21:00)
[2022-09-30] MEDS: MIRALAX *UNIT DOSE* 17GM PACKET PO SCH (08:57)
[2022-09-30] MEDS: NYSTATIN 100,000 UNITS/GM TOPICAL PWD 15GM TOP SCH ×2 (08:57→21:13)
[2022-09-30 14:00] VITALS: BP 136/65
[2022-09-30] MEDS: LevoFLOXacin 750 MG TABLET PO SCH (17:52)
[2022-09-30 20:00] VITALS: BP 124/64
[2022-09-30] MEDS: SENNA 8.6 MG TAB (SENOKOT) PO SCH (21:00)
[2022-09-30] MEDS: LEVEMIR (INSULIN DETEMIR) 1 UNITS/0.01ML SC SCH (21:11)
[2022-09-30] MEDS: METOPROLOL SUCC *XL* 25MG TAB (TopROL *XL*) PO SCH (21:11)
[2022-09-30] MEDS: FINASTERIDE 5MG TAB PO SCH (21:11)
[2022-09-30] MEDS: TAMSULOSIN 0.4 MG CAP PO SCH (21:11)
[2022-10-01 06:00] VITALS: BP 150/69
[2022-10-01] MEDS: LEVOTHYROXINE 75MCG TABLET (0.075MG) PO SCH (06:01)
[2022-10-01] MEDS: metroNIDAZOLE (FLAGYL) 500MG TABLET PO SCH ×3 (06:01→20:44)
[2022-10-01] MEDS: DICLOFENAC EPOLAMINE 1.3% PATCH TOP SCH ×2 (07:43→20:45)
[2022-10-01] MEDS: GABAPENTIN 300 MG CAP PO SCH (07:43)
[2022-10-01] MEDS: ATORVASTATIN 20 MG TAB PO SCH (07:43)
[2022-10-01] MEDS: PANTOPRAZOLE 40MG TAB (PROTONIX) PO SCH (07:43)
[2022-10-01] MEDS: LACTOBACILLUS ACIDOPHILUS CAP (BACID) PO SCH ×4 (07:43→20:43)
[2022-10-01] MEDS: metFORMIN (GLUCOPHAGE) 500MG TAB PO SCH (07:44)
[2022-10-01] MEDS: HEPARIN SOD (PORCINE) 5000UNITS/ML 1ML VIAL/SYRINGE SQ SCH ×2 (07:44→20:43)
[2022-10-01] MEDS: DOCUSATE SODIUM 100MG CAPSULE PO SCH ×2 (07:45→20:45)
[2022-10-01] MEDS: INSULIN LISPRO (NovoLOG) PER UNIT SC SCH ×4 (07:45→20:45)
[2022-10-01] MEDS: ACETAMINOPHEN 500 MG TAB PO SCH ×3 (07:45→20:44)
[2022-10-01] MEDS: MIRALAX *UNIT DOSE* 17GM PACKET PO SCH (07:45)
[2022-10-01] MEDS: NYSTATIN 100,000 UNITS/GM TOPICAL PWD 15GM TOP SCH ×2 (07:46→20:45)
[2022-10-01 14:00] VITALS: BP 146/65
[2022-10-01] MEDS: LevoFLOXacin 750 MG TABLET PO SCH (17:57)
[2022-10-01 20:07] VITALS: BP 146/76
[2022-10-01] MEDS: LEVEMIR (INSULIN DETEMIR) 1 UNITS/0.01ML SC SCH (20:42)
[2022-10-01] MEDS: TAMSULOSIN 0.4 MG CAP PO SCH (20:43)
[2022-10-01] MEDS: FINASTERIDE 5MG TAB PO SCH (20:43)
[2022-10-01] MEDS: METOPROLOL SUCC *XL* 25MG TAB (TopROL *XL*) PO SCH (20:44)
[2022-10-01] MEDS: SENNA 8.6 MG TAB (SENOKOT) PO SCH (20:45)
[2022-10-02] MEDS: metroNIDAZOLE (FLAGYL) 500MG TABLET PO SCH ×3 (05:42→20:58)
[2022-10-02] MEDS: LEVOTHYROXINE 75MCG TABLET (0.075MG) PO SCH (05:42)
[2022-10-02 05:45] VITALS: BP 134/67
[2022-10-02] MEDS: LACTOBACILLUS ACIDOPHILUS CAP (BACID) PO SCH ×4 (07:29→20:53)
[2022-10-02] MEDS: metFORMIN (GLUCOPHAGE) 500MG TAB PO SCH (07:29)
[2022-10-02] MEDS: INSULIN LISPRO (NovoLOG) PER UNIT SC SCH ×4 (07:31→20:54)
[2022-10-02 07:57] LABS: BASO % 0.6 % (0.0-1.0); EOS # 0.2 10^3/uL (0.0-0.5); EOS % 3.4 % (0.0-3.0); HEMATOCRIT 31.7 % (42.0-52.0); HEMOGLOBIN 9.9 g/dl (13.5-17.5); LYMPH # 1.4 10^3/uL (1.5-5.0); LYMPH % 20.1 % (24.0-44.0); MEAN CORPUSCULAR HEMOGLOBIN 25.6 pg (27.0-33.0); MEAN CORPUSCULAR HGB CONC 31.2 g/dl (32.0-36.5); MEAN CORPUSCULAR VOLUME 82.1 fl (80.0-96.0); MONO # 0.6 10^3/uL (0.0-0.8); MONO % 9.3 % (2.0-8.0); NEUTROPHILS # 4.5 10^3/uL (1.5-8.5); PLATELET COUNT, AUTOMATED 333 10^3/uL (150-450); RED BLOOD COUNT 3.86 10^6/uL (4.30-6.10); WHITE BLOOD COUNT 6.8 10^3/uL (4.0-10.0)
[2022-10-02 08:29] LABS: BLOOD UREA NITROGEN 16 MG/DL (9-23); CALCIUM LEVEL 8.6 MG/DL (8.3-10.6); CARBON DIOXIDE LEVEL 27 MMOL/L (20-31); CHLORIDE LEVEL 103 MMOL/L (98-107); GLOMERULAR FILTRATION RATE > 60.0 (>35); GLUCOSE, FASTING 241 MG/DL (74-106); POTASSIUM SERUM 4.6 MMOL/L (3.5-5.1); SODIUM LEVEL 138 MMOL/L (136-145)
[2022-10-02] MEDS: NYSTATIN 100,000 UNITS/GM TOPICAL PWD 15GM TOP SCH ×2 (09:00→20:55)
[2022-10-02] MEDS: DOCUSATE SODIUM 100MG CAPSULE PO SCH ×2 (09:00→20:56)
[2022-10-02] MEDS: MIRALAX *UNIT DOSE* 17GM PACKET PO SCH (09:00)
[2022-10-02 09:32] VITALS: BP 134/67
[2022-10-02] MEDS: PANTOPRAZOLE 40MG TAB (PROTONIX) PO SCH (09:54)
[2022-10-02] MEDS: GABAPENTIN 300 MG CAP PO SCH (09:54)
[2022-10-02] MEDS: ATORVASTATIN 20 MG TAB PO SCH (09:54)
[2022-10-02] MEDS: ACETAMINOPHEN 500 MG TAB PO SCH ×3 (09:59→20:53)
[2022-10-02] MEDS: HEPARIN SOD (PORCINE) 5000UNITS/ML 1ML VIAL/SYRINGE SQ SCH ×2 (10:00→20:55)
[2022-10-02] MEDS: DICLOFENAC EPOLAMINE 1.3% PATCH TOP SCH ×2 (10:01→20:55)
[2022-10-02 14:00] VITALS: BP 124/72
[2022-10-02] MEDS: LevoFLOXacin 750 MG TABLET PO SCH (17:03)
[2022-10-02 20:00] VITALS: BP 130/60
[2022-10-02] MEDS: FINASTERIDE 5MG TAB PO SCH (20:53)
[2022-10-02] MEDS: TAMSULOSIN 0.4 MG CAP PO SCH (20:53)
[2022-10-02] MEDS: METOPROLOL SUCC *XL* 25MG TAB (TopROL *XL*) PO SCH (20:54)
[2022-10-02] MEDS: LEVEMIR (INSULIN DETEMIR) 1 UNITS/0.01ML SC SCH (20:54)
[2022-10-02] MEDS: SENNA 8.6 MG TAB (SENOKOT) PO SCH (20:56)
[2022-10-03] MEDS: metroNIDAZOLE (FLAGYL) 500MG TABLET PO SCH ×2 (05:28→12:55)
[2022-10-03] MEDS: LEVOTHYROXINE 75MCG TABLET (0.075MG) PO SCH (05:28)
[2022-10-03 06:00] VITALS: BP 130/80
[2022-10-03] MEDS: metFORMIN (GLUCOPHAGE) 500MG TAB PO SCH (08:46)
[2022-10-03] MEDS: INSULIN LISPRO (NovoLOG) PER UNIT SC SCH ×2 (08:46→12:54)
[2022-10-03] MEDS: DICLOFENAC EPOLAMINE 1.3% PATCH TOP SCH (08:47)
[2022-10-03 08:48] VITALS: BP 136/70
[2022-10-03] MEDS: LACTOBACILLUS ACIDOPHILUS CAP (BACID) PO SCH ×2 (08:48→12:54)
[2022-10-03] MEDS: ATORVASTATIN 20 MG TAB PO SCH (08:48)
[2022-10-03] MEDS: PANTOPRAZOLE 40MG TAB (PROTONIX) PO SCH (08:48)
[2022-10-03] MEDS: GABAPENTIN 300 MG CAP PO SCH (08:48)
[2022-10-03] MEDS: HEPARIN SOD (PORCINE) 5000UNITS/ML 1ML VIAL/SYRINGE SQ SCH (08:49)
[2022-10-03] MEDS: ACETAMINOPHEN 500 MG TAB PO SCH (08:49)
[2022-10-03] MEDS: SANTYL OINT 30GM TOP SCH (08:50)
[2022-10-03] MEDS: NYSTATIN 100,000 UNITS/GM TOPICAL PWD 15GM TOP SCH (08:50)
[2022-10-03] MEDS: DOCUSATE SODIUM 100MG CAPSULE PO SCH (09:00)
[2022-10-03] MEDS: MIRALAX *UNIT DOSE* 17GM PACKET PO SCH (09:00)
[2022-10-03] MEDS ORDERED: FINA5TAB2 PO (09:55)
[2022-10-03] MEDS ORDERED: METR-265 PO (09:55)
[2022-10-03] MEDS ORDERED: INSUDET SC (09:55)
[2022-10-03] MEDS ORDERED: CART120C PO (09:55)
[2022-10-03] MEDS ORDERED: FLOM0.4C39 PO (09:55)
[2022-10-03] MEDS ORDERED: METF500T13 PO (09:55)
[2022-10-03] MEDS ORDERED: LEVO75TA4 PO (09:55)
[2022-10-03] MEDS ORDERED: PRAD150C6 PO (09:55)
[2022-10-03] MEDS ORDERED: LEVO1TAB40 PO (09:55)
[2022-10-03] MEDS ORDERED: GABA-282 PO (09:55)
[2022-10-03] MEDS ORDERED: METO1TAB32 PO (09:55)
== END 2022-10-03 15:15 | disposition home health service (06) | DRG 948 ==
LOC: M PM&R 16:30 → UNDODISIN 16:45
PROVIDERS: ADMIT Physical Medicine & Rehabilitation; ATTEND Physical Medicine & Rehabilitation
DX: R53.1 Weakness (principal); M86.9 Osteomyelitis, unspecified; R26.89 Other abnormalities of gait and mobility; Z96.0 Presence of urogenital implants; I48.91 Unspecified atrial fibrillation; R31.9 Hematuria, unspecified; E11.621 Type 2 diabetes mellitus with foot ulcer; I10 Essential (primary) hypertension; E11.42 Type 2 diabetes mellitus with diabetic polyneuropathy; N40.0 Benign prostatic hyperplasia without lower urinary tract symptoms; I73.9 Peripheral vascular disease, unspecified; E11.51 Type 2 diabetes mellitus with diabetic peripheral angiopathy without gangrene; I25.10 Atherosclerotic heart disease of native coronary artery without angina pectoris; Z74.09 Other reduced mobility; Z74.1 Need for assistance with personal care; Z95.5 Presence of coronary angioplasty implant and graft; E78.5 Hyperlipidemia, unspecified; E03.9 Hypothyroidism, unspecified; L89.619 Pressure ulcer of right heel, unspecified stage; L89.629 Pressure ulcer of left heel, unspecified stage; Z96.653 Presence of artificial knee joint, bilateral; Z90.49 Acquired absence of other specified parts of digestive tract; Z79.84 Long term (current) use of oral hypoglycemic drugs; Z79.82 Long term (current) use of aspirin; Z79.899 Other long term (current) drug therapy; Z66 Do not resuscitate

== ENCOUNTER → 2022-10-19 | Outpatient (REF) | payer MEDICARE, BC ==
[~2022-10-19] MED LIST changes: +ACET-907 PO; +ALBU8.5H INH; +ASPI81TAEC PO; +DILT120C89 PO; +GABA-282 PO; +INSUDET SC; +LEVO1TAB40 PO; +METF10004 PO; +METR-265 PO; +OXYC-517 PO; +SYNT88TA2 PO
== END ==
LOC: M SMT 16:45
PROVIDERS: ATTEND Urology
DX: R33.9 Retention of urine, unspecified (principal)

== ENCOUNTER → 2022-10-22 | Outpatient (CLI) | payer MEDICARE, BC ==
[~2022-10-22] MED LIST changes: -ACET-907 PO; -ALBU8.5H INH; -ASPI81TAEC PO; -DILT120C89 PO; -SYNT88TA2 PO
== END ==
LOC: M LABSMTC 09:50
PROVIDERS: ATTEND Anesthesiology
DX: Z20.828 Contact with and (suspected) exposure to other viral communicable diseases (principal); Z11.52 Encounter for screening for COVID-19

== ENCOUNTER 2022-11-16 13:33 | Inpatient (IN) | payer MEDICARE, BC ==
[~2022-11-16] VITALS: Ht 182.9 cm; Wt 97.2 kg
[2022-11-16] MEDS ORDERED: VANCOMYCIN HCL 1,000 MG in IV FLUID PLACE HOLDER 1 EA IV SCH (15:30)
[2022-11-16] MEDS ORDERED: SYNT88TA2 PO (15:55)
[2022-11-16] MEDS ORDERED: FLOM0.4C39 PO (15:55)
[2022-11-16] MEDS ORDERED: LEVO1TAB40 PO (15:55)
[2022-11-16] MEDS ORDERED: DILT120C89 PO (15:58)
[2022-11-16 16:00] VITALS: BP 146/87
[2022-11-16] MEDS ORDERED: ALBU8.5H INH (16:03)
[2022-11-16] MEDS ORDERED: ACET-907 PO (16:03)
[2022-11-16 16:40] LABS: BLOOD UREA NITROGEN 17 MG/DL (9-23); CALCIUM LEVEL 8.4 MG/DL (8.3-10.6); CARBON DIOXIDE LEVEL 30 MMOL/L (20-31); CHLORIDE LEVEL 104 MMOL/L (98-107); CREATININE FOR GFR 0.61 MG/DL (0.70-1.30); GLOMERULAR FILTRATION RATE > 60.0 (>35); GLUCOSE, FASTING 193 MG/DL (74-106); POTASSIUM SERUM 4.5 MMOL/L (3.5-5.1); SODIUM LEVEL 139 MMOL/L (136-145)
[2022-11-16 16:46] LABS: HEMATOCRIT 31.9 % (42.0-52.0); HEMOGLOBIN 9.7 g/dl (13.5-17.5); MEAN CORPUSCULAR HEMOGLOBIN 24.1 pg (27.0-33.0); MEAN CORPUSCULAR HGB CONC 30.4 g/dl (32.0-36.5); MEAN CORPUSCULAR VOLUME 79.4 fl (80.0-96.0); PLATELET COUNT, AUTOMATED 349 10^3/uL (150-450); RED BLOOD COUNT 4.02 10^6/uL (4.30-6.10); WHITE BLOOD COUNT 11.6 10^3/uL (4.0-10.0)
[2022-11-16] MEDS ORDERED: ELIQ5TAB PO (16:55)
[2022-11-16 16:57] LABS: ERYTHROCYTE SEDIMENTATION RATE 99 mm/hr (0-20)
[2022-11-16] MEDS ORDERED: HOME MED LIST COMPLETE! XX SCH (17:00)
[2022-11-16] MEDS ORDERED: PIPERACILLIN/TAZOBACTAM SOD 3.375 GM in D5W MINI-BAG PLUS 50 ML IV ONE (17:00)
[2022-11-16] MEDS ORDERED: GLUCOSE 4GM CHEW TABLET PO PRN (17:20)
[2022-11-16] MEDS ORDERED: ACETAMINOPHEN TAB 650MG DOSE (2X325MG) PO PRN (17:20)
[2022-11-16] MEDS ORDERED: GLUCAGON INJ 1MG VIAL SC PRN (17:20)
[2022-11-16] MEDS ORDERED: DEXTROSE 50% 50ML SYRINGE IV PRN (17:20)
[2022-11-16] MEDS ORDERED: ALBUTEROL 90 MCG/ACT 8GM HFA INHALER INH PRN (17:20)
[2022-11-16] MEDS: NS 1,000 ML IV SCH (17:20)
[2022-11-16] MEDS: INSULIN LISPRO (NovoLOG) PER UNIT SC SCH ×2 (18:11→21:00)
[2022-11-16] MEDS ORDERED: CLINDAMYCIN 900 MG in IV 1 EA IV ONE (19:00)
[2022-11-16] MEDS ORDERED: VANCOMYCIN HCL 1,000 MG, VIAL MATE ADAPTER 1 EACH in D5W 250 ML IV ONE (20:00)
[2022-11-16] MEDS ORDERED: VANCOMYCIN HCL 750 MG, VIAL MATE ADAPTER 1 EACH in D5W 250 ML IV ONE (21:00)
[2022-11-16] MEDS ORDERED: APIXABAN 5 MG TAB (ELIQUIS) PO SCH (21:00)
[2022-11-16] MEDS ORDERED: METOPROLOL SUCC *XL* 25MG TAB (TopROL *XL*) PO SCH (21:00)
[2022-11-16] MEDS: FINASTERIDE 5MG TAB PO SCH (21:27)
[2022-11-16] MEDS: TAMSULOSIN 0.4 MG CAP PO SCH (21:28)
[2022-11-16 22:00] VITALS: BP 140/82
[2022-11-16] MEDS: BENZONATATE 100MG CAPSULE PO PRN (23:48)
[2022-11-17] VITALS (9 sets, daily range): BP systolic 86–131; BP diastolic 52–79
[2022-11-17] MEDS: PIPERACILLIN/TAZOBACTAM SOD 3.375 GM in D5W MINI-BAG PLUS 50 ML IV SCH ×5 (01:29→23:46)
[2022-11-17] MEDS: LEVOTHYROXINE 88MCG TABLET (0.088 MG) PO SCH (06:01)
[2022-11-17 06:19] LABS: BASO % 0.4 % (0.0-1.0); EOS # 0.2 10^3/uL (0.0-0.5); EOS % 1.5 % (0.0-3.0); HEMATOCRIT 28.4 % (42.0-52.0); HEMOGLOBIN 8.7 g/dl (13.5-17.5); LYMPH % 10.4 % (24.0-44.0); MEAN CORPUSCULAR HEMOGLOBIN 24.1 pg (27.0-33.0); MEAN CORPUSCULAR HGB CONC 30.6 g/dl (32.0-36.5); MEAN CORPUSCULAR VOLUME 78.7 fl (80.0-96.0); MONO # 0.8 10^3/uL (0.0-0.8); MONO % 8.1 % (2.0-8.0); NEUTROPHILS # 7.8 10^3/uL (1.5-8.5); NEUTROPHILS % 79.1 % (36.0-66.0); PLATELET COUNT, AUTOMATED 305 10^3/uL (150-450); RED BLOOD COUNT 3.61 10^6/uL (4.30-6.10); WHITE BLOOD COUNT 9.8 10^3/uL (4.0-10.0)
[2022-11-17 07:25] LABS: BLOOD UREA NITROGEN 15 MG/DL (9-23); CALCIUM LEVEL 7.9 MG/DL (8.3-10.6); CARBON DIOXIDE LEVEL 26 MMOL/L (20-31); CHLORIDE LEVEL 104 MMOL/L (98-107); CREATININE FOR GFR 0.68 MG/DL (0.70-1.30); GLOMERULAR FILTRATION RATE > 60.0 (>35); GLUCOSE, FASTING 161 MG/DL (74-106); MAGNESIUM LEVEL 1.3 MG/DL (1.8-2.4); PHOSPHORUS LEVEL 4.2 MG/DL (2.4-5.1); POTASSIUM SERUM 4.8 MMOL/L (3.5-5.1); SODIUM LEVEL 138 MMOL/L (136-145)
[2022-11-17] MEDS: INSULIN LISPRO (NovoLOG) PER UNIT SC SCH ×4 (07:30→20:51)
[2022-11-17] MEDS: NS 1,000 ML IV SCH (09:59)
[2022-11-17] MEDS ORDERED: VANCOMYCIN HCL 1,000 MG, VIAL MATE ADAPTER 1 EACH in D5W 250 ML IV SCH (10:00)
[2022-11-17] MEDS ORDERED: MIDAZOLAM INJ 2MG/2ML VIAL As Ordered ONE (11:46)
[2022-11-17] MEDS ORDERED: LIDOCAINE 2% 100MG/5ML SDV (FOR ANES.) As Ordered ONE ×2 (11:46→12:21)
[2022-11-17] MEDS ORDERED: propofoL 200 MG/20 ML VIAL As Ordered ONE ×2 (11:47→12:21)
[2022-11-17] MEDS ORDERED: fentaNYL 100 MCG/2 ML INJECTION As Ordered ONE (11:47)
[2022-11-17] MEDS ORDERED: LIDOCAINE 1% SDV 30ML VIAL As Ordered ONE (12:13)
[2022-11-17] MEDS ORDERED: BUPIVACAINE HCL 0.5% 30ML VIAL As Ordered ONE (12:14)
[2022-11-17] MEDS ORDERED: PHENYLephrine 500MCG 5ML (100MCG/ML) SYRINGE As Ordered ONE (12:21)
[2022-11-17] MEDS ORDERED: oxyCODONE 5MG TAB PO PRN (12:50)
[2022-11-17] MEDS ORDERED: ONDANSETRON 4MG 2ML VIAL IV PRN (12:50)
[2022-11-17] MEDS ORDERED: LR 1,000 ML IV SCH (12:50)
[2022-11-17] MEDS ORDERED: fentaNYL 100 MCG/2 ML INJECTION IV PRN (12:50)
[2022-11-17] MEDS: MAG SULF 1GM/100ML (MAG RUN) 1 GM in IV 1 EA IV SCH ×2 (14:59→16:02)
[2022-11-17] MEDS ORDERED: NS 500 ML IV ONE ×2 (16:25→18:15)
[2022-11-17] MEDS: CLINDAMYCIN 600 MG in IV 1 EA IV SCH ×2 (17:28→22:54)
[2022-11-17 18:17] LABS: HEMATOCRIT 30.9 % (42.0-52.0); HEMOGLOBIN 9.2 g/dl (13.5-17.5)
[2022-11-17] MEDS ORDERED: SODIUM CHLORIDE 0.9% 1000ML IV ONE (18:35)
[2022-11-17] MEDS: LINEZOLID 600MG TABLET (ZYVOX) PO SCH (20:50)
[2022-11-17] MEDS: TAMSULOSIN 0.4 MG CAP PO SCH (20:50)
[2022-11-17] MEDS: FINASTERIDE 5MG TAB PO SCH (20:50)
[2022-11-17] MEDS: BENZONATATE 100MG CAPSULE PO PRN (20:54)
[2022-11-17] MEDS ORDERED: METOPROLOL TART 25 MG TABLET PO SCH (21:00)
[2022-11-17] MEDS ORDERED: LINEZOLID 600 MG in IV 1 EA IV SCH (22:00)
[2022-11-18] VITALS (10 sets, daily range): BP systolic 82–140; BP diastolic 62–80
[2022-11-18] MEDS ORDERED: guaiFENesin SYRUP 200MG 10ML UDC PO PRN (00:25)
[2022-11-18] MEDS ORDERED: IPRATROPIUM 0.5MG/ALBUTEROL 2.5MG INH SOL UD 3ML (DUONEB) NEB ONE (01:30)
[2022-11-18] MEDS ORDERED: SODIUM CHLORIDE HYPERTONIC 3% 15ML NEB SOL INH PRN (02:00)
[2022-11-18 02:27] LABS: VENOUS BASE EXCESS -2.1 (-2.0-2.0); VENOUS HCO3 21.4 MEQ/L (23.0-27.0); VENOUS O2 SATURATION 99.1 % (60.0-80.0); VENOUS PARTIAL PRESSURE O2 142.9 mmHg (30.0-50.0); VENOUS PH 7.443 UNITS (7.330-7.430); VENOUS STANDARD HCO3 22.7 MEQ/L; VENOUS TOTAL CO2 22.4 MEQ/L (24.0-28.0)
[2022-11-18] MEDS ORDERED: NS 1,000 ML IV ONE ×2 (02:30→05:55)
[2022-11-18] MEDS ORDERED: NS 500 ML IV ONE (02:30)
[2022-11-18 02:33] LABS: BASO % 0.2 % (0.0-1.0); EOS % 0.1 % (0.0-3.0); HEMOGLOBIN 8.4 g/dl (13.5-17.5); LYMPH # 0.5 10^3/uL (1.5-5.0); LYMPH % 2.8 % (24.0-44.0); MEAN CORPUSCULAR HGB CONC 31.1 g/dl (32.0-36.5); MEAN CORPUSCULAR VOLUME 77.1 fl (80.0-96.0); MONO # 0.9 10^3/uL (0.0-0.8); MONO % 5.4 % (2.0-8.0); NEUTROPHILS # 15.3 10^3/uL (1.5-8.5); NEUTROPHILS % 91.1 % (36.0-66.0); PLATELET COUNT, AUTOMATED 300 10^3/uL (150-450); WHITE BLOOD COUNT 16.7 10^3/uL (4.0-10.0)
[2022-11-18] MEDS ORDERED: ACETAMINOPHEN 325 MG TAB PO ONE (03:00)
[2022-11-18 03:03] LABS: BLOOD UREA NITROGEN 22 MG/DL (9-23); CALCIUM LEVEL 8.4 MG/DL (8.3-10.6); CARBON DIOXIDE LEVEL 23 MMOL/L (20-31); CHLORIDE LEVEL 103 MMOL/L (98-107); CREATININE FOR GFR 0.94 MG/DL (0.70-1.30); GLOMERULAR FILTRATION RATE > 60.0 (>35); GLUCOSE, FASTING 247 MG/DL (74-106); MAGNESIUM LEVEL 1.7 MG/DL (1.8-2.4); PHOSPHORUS LEVEL 4.6 MG/DL (2.4-5.1); POTASSIUM SERUM 4.9 MMOL/L (3.5-5.1); SODIUM LEVEL 135 MMOL/L (136-145)
[2022-11-18 03:17] LABS: ERYTHROCYTE SEDIMENTATION RATE 97 mm/hr (0-20)
[2022-11-18] MEDS: PIPERACILLIN/TAZOBACTAM SOD 3.375 GM in D5W MINI-BAG PLUS 50 ML IV SCH ×4 (05:27→23:45)
[2022-11-18] MEDS: LEVOTHYROXINE 88MCG TABLET (0.088 MG) PO SCH (05:27)
[2022-11-18] MEDS ORDERED: NS 1,000 ML IV SCH (05:55)
[2022-11-18] MEDS: CLINDAMYCIN 600 MG in IV 1 EA IV SCH ×3 (06:54→22:45)
[2022-11-18] MEDS: INSULIN LISPRO (NovoLOG) PER UNIT SC SCH ×4 (09:49→21:00)
[2022-11-18] MEDS: LINEZOLID 600MG TABLET (ZYVOX) PO SCH ×2 (09:49→21:16)
[2022-11-18] MEDS ORDERED: NS 250 ML IV ONE (10:05)
[2022-11-18] MEDS: IPRATROPIUM 0.5MG/ALBUTEROL 2.5MG INH SOL UD 3ML (DUONEB) NEB PRN ×3 (14:58→22:49)
[2022-11-18] MEDS: HEPARIN SOD (PORCINE) 5000UNITS/ML 1ML VIAL/SYRINGE SQ SCH ×2 (17:38→21:16)
[2022-11-18] MEDS: TAMSULOSIN 0.4 MG CAP PO SCH (21:16)
[2022-11-18] MEDS: FINASTERIDE 5MG TAB PO SCH (21:16)
[2022-11-19] VITALS (11 sets, daily range): BP systolic 106–142; BP diastolic 57–78; O2SAT 97
[2022-11-19] MEDS ORDERED: ALBUTEROL SULFATE 2.5MG/0.5ML INH NEB SOLN NEB ONE
[2022-11-19] MEDS: METOPROLOL 5 MG/5 ML VIAL IV SCH ×3 (00:46→01:10)
[2022-11-19] MEDS: HEPARIN SOD (PORCINE) 5000UNITS/ML 1ML VIAL/SYRINGE SQ SCH (05:10)
[2022-11-19] MEDS: PIPERACILLIN/TAZOBACTAM SOD 3.375 GM in D5W MINI-BAG PLUS 50 ML IV SCH ×3 (05:10→18:06)
[2022-11-19] MEDS: LEVOTHYROXINE 88MCG TABLET (0.088 MG) PO SCH (05:11)
[2022-11-19 05:33] LABS: BASO % 0.1 % (0.0-1.0); EOS % 0.2 % (0.0-3.0); HEMOGLOBIN 8.3 g/dl (13.5-17.5); LYMPH # 0.6 10^3/uL (1.5-5.0); LYMPH % 4.6 % (24.0-44.0); MEAN CORPUSCULAR HEMOGLOBIN 24.1 pg (27.0-33.0); MEAN CORPUSCULAR HGB CONC 30.7 g/dl (32.0-36.5); MEAN CORPUSCULAR VOLUME 78.3 fl (80.0-96.0); MONO # 0.8 10^3/uL (0.0-0.8); MONO % 5.9 % (2.0-8.0); NEUTROPHILS # 12.4 10^3/uL (1.5-8.5); NEUTROPHILS % 88.6 % (36.0-66.0); PLATELET COUNT, AUTOMATED 315 10^3/uL (150-450); RED BLOOD COUNT 3.45 10^6/uL (4.30-6.10)
[2022-11-19 06:03] LABS: BLOOD UREA NITROGEN 29 MG/DL (9-23); CALCIUM LEVEL 8.4 MG/DL (8.3-10.6); CARBON DIOXIDE LEVEL 22 MMOL/L (20-31); CHLORIDE LEVEL 106 MMOL/L (98-107); CREATININE FOR GFR 0.89 MG/DL (0.70-1.30); GLOMERULAR FILTRATION RATE > 60.0 (>35); GLUCOSE, FASTING 232 MG/DL (74-106); MAGNESIUM LEVEL 1.8 MG/DL (1.8-2.4); PHOSPHORUS LEVEL 4.1 MG/DL (2.4-5.1); POTASSIUM SERUM 4.6 MMOL/L (3.5-5.1); SODIUM LEVEL 136 MMOL/L (136-145)
[2022-11-19] MEDS: CLINDAMYCIN 600 MG in IV 1 EA IV SCH ×3 (06:30→23:52)
[2022-11-19] MEDS ORDERED: FUROSEMIDE 20MG/2ML VIAL IV STA (07:01)
[2022-11-19] MEDS ORDERED: FUROSEMIDE 20MG/2ML VIAL IV ONE (07:05)
[2022-11-19 07:32] LABS: ABG BASE EXCESS -3.7 (-2.0-2.0); ABG HCO3 21.8 MEQ/L (22.0-26.0); ABG O2 SATURATION 96.2 % (95.0-99.0); ABG PARTIAL PRESSURE CO2 41.2 mmHg (35.0-45.0); ABG PARTIAL PRESSURE O2 91.1 mmHg (75.0-100.0); ABG STANDARD HCO3 21.3 MEQ/L (22.0-26.0); ABG pH (ARTERIAL) 7.341 UNITS (7.350-7.450)
[2022-11-19] MEDS: METOPROLOL TART 12.5 MG PER 1/2 TAB PO SCH ×2 (07:49→21:03)
[2022-11-19] MEDS: LINEZOLID 600MG TABLET (ZYVOX) PO SCH ×2 (07:55→21:02)
[2022-11-19] MEDS: INSULIN LISPRO (NovoLOG) PER UNIT SC SCH ×4 (07:55→20:44)
[2022-11-19] MEDS ORDERED: ISOVUE-370 76% 100ML VIAL As Ordered ONE (09:20)
[2022-11-19] MEDS ORDERED: HEPARIN SOD (PORCINE) 5000UNITS/ML 1ML VIAL/SYRINGE IV PRN (10:20)
[2022-11-19] MEDS ORDERED: ATORVASTATIN 20 MG TAB PO ONE (10:20)
[2022-11-19] MEDS ORDERED: ASPIRIN 325 MG TAB PO ONE (10:20)
[2022-11-19] MEDS: HEPARIN DRIP 25,000 UNITS in IV 1 EA IV SCH (11:46)
[2022-11-19] MEDS ORDERED: FUROSEMIDE 40MG/4ML VIAL IV ONE ×2 (13:50→21:00)
[2022-11-19 19:06] LABS: INR 1.34; PROTHROMBIN TIME 16.8 SECONDS (12.5-14.5)
[2022-11-19] MEDS: IPRATROPIUM 0.5MG/ALBUTEROL 2.5MG INH SOL UD 3ML (DUONEB) NEB PRN (19:18)
[2022-11-19 19:49] LABS: PARTIAL THROMBOPLASTIN TIME 109.7 SECONDS (24.8-34.2)
[2022-11-19] MEDS ORDERED: APIXABAN 5 MG TAB (ELIQUIS) PO SCH (21:00)
[2022-11-19] MEDS: TAMSULOSIN 0.4 MG CAP PO SCH (21:02)
[2022-11-19] MEDS: FINASTERIDE 5MG TAB PO SCH (21:03)
[2022-11-20] VITALS: BP 110/73
[2022-11-20] MEDS: PIPERACILLIN/TAZOBACTAM SOD 3.375 GM in D5W MINI-BAG PLUS 50 ML IV SCH ×4 (00:03→17:17)
[2022-11-20 04:00] VITALS: BP 111/58
[2022-11-20] MEDS: LEVOTHYROXINE 88MCG TABLET (0.088 MG) PO SCH (05:32)
[2022-11-20] MEDS: HEPARIN DRIP 25,000 UNITS in IV 1 EA IV SCH (06:09)
[2022-11-20 06:28] LABS: BASO % 0.3 % (0.0-1.0); EOS # 0.2 10^3/uL (0.0-0.5); EOS % 1.6 % (0.0-3.0); HEMATOCRIT 24.9 % (42.0-52.0); HEMOGLOBIN 7.7 g/dl (13.5-17.5); LYMPH % 10.6 % (24.0-44.0); MEAN CORPUSCULAR HEMOGLOBIN 23.8 pg (27.0-33.0); MEAN CORPUSCULAR HGB CONC 30.9 g/dl (32.0-36.5); MEAN CORPUSCULAR VOLUME 76.9 fl (80.0-96.0); MONO # 0.7 10^3/uL (0.0-0.8); NEUTROPHILS # 7.6 10^3/uL (1.5-8.5); PLATELET COUNT, AUTOMATED 298 10^3/uL (150-450); RED BLOOD COUNT 3.24 10^6/uL (4.30-6.10); WHITE BLOOD COUNT 9.5 10^3/uL (4.0-10.0)
[2022-11-20] MEDS: CLINDAMYCIN 600 MG in IV 1 EA IV SCH (06:43)
[2022-11-20 06:50] LABS: BLOOD UREA NITROGEN 28 MG/DL (9-23); CALCIUM LEVEL 7.8 MG/DL (8.3-10.6); CARBON DIOXIDE LEVEL 25 MMOL/L (20-31); CHLORIDE LEVEL 106 MMOL/L (98-107); CREATININE FOR GFR 0.92 MG/DL (0.70-1.30); GLOMERULAR FILTRATION RATE > 60.0 (>35); GLUCOSE, FASTING 145 MG/DL (74-106); MAGNESIUM LEVEL 1.6 MG/DL (1.8-2.4); PHOSPHORUS LEVEL 3.6 MG/DL (2.4-5.1); POTASSIUM SERUM 3.9 MMOL/L (3.5-5.1); SODIUM LEVEL 140 MMOL/L (136-145)
[2022-11-20 07:30] VITALS: BP 106/57
[2022-11-20 08:09] VITALS: BP 106/57
[2022-11-20] MEDS: METOPROLOL TART 12.5 MG PER 1/2 TAB PO SCH (08:09)
[2022-11-20] MEDS: LINEZOLID 600MG TABLET (ZYVOX) PO SCH (08:15)
[2022-11-20] MEDS: INSULIN LISPRO (NovoLOG) PER UNIT SC SCH ×3 (08:15→17:17)
[2022-11-20] MEDS: MAG SULF 1GM/100ML (MAG RUN) 1 GM in IV 1 EA IV SCH ×2 (08:25→09:52)
[2022-11-20 10:29] LABS: INR 1.3; PROTHROMBIN TIME 16.4 SECONDS (12.5-14.5)
[2022-11-20 10:30] LABS: PARTIAL THROMBOPLASTIN TIME 52.8 SECONDS (24.8-34.2)
[2022-11-20 11:36] VITALS: BP 114/76
[2022-11-20 12:24] LABS: ERYTHROCYTE SEDIMENTATION RATE 89 mm/hr (0-20)
[2022-11-20 13:49] LABS: HEMATOCRIT 27.8 % (42.0-52.0); HEMOGLOBIN 8.6 g/dl (13.5-17.5)
[2022-11-20] MEDS ORDERED: ASPIRIN 81MG ENTERIC TABLET PO SCH (15:30)
[2022-11-20 15:56] VITALS: BP 122/62
[2022-11-20] MEDS ORDERED: ASPI81TAEC PO (16:03)
== END 2022-11-20 18:37 | disposition short-term general hospital (02) | DRG 628 ==
LOC: M ED INP 14:12 → M MSPAV 15:43 → M PCU 11-18 11:02
PROVIDERS: ADMIT Internal Medicine; ATTEND Internal Medicine
PROC: 0QBM0ZZ Excision of Left Tarsal, Open Approach (ICD-10-PCS; principal; 2022-11-17 11:00)
DX: E11.69 Type 2 diabetes mellitus with other specified complication (principal); J96.01 Acute respiratory failure with hypoxia; J18.9 Pneumonia, unspecified organism; A41.9 Sepsis, unspecified organism; I21.4 Non-ST elevation (NSTEMI) myocardial infarction; L97.409 Non-pressure chronic ulcer of unspecified heel and midfoot with unspecified severity; I38 Endocarditis, valve unspecified; M86.8X7 Other osteomyelitis, ankle and foot; L97.429 Non-pressure chronic ulcer of left heel and midfoot with unspecified severity; J81.1 Chronic pulmonary edema; E87.20 Acidosis, unspecified; N39.0 Urinary tract infection, site not specified; E11.621 Type 2 diabetes mellitus with foot ulcer; E11.40 Type 2 diabetes mellitus with diabetic neuropathy, unspecified; I50.9 Heart failure, unspecified; E11.51 Type 2 diabetes mellitus with diabetic peripheral angiopathy without gangrene; I25.10 Atherosclerotic heart disease of native coronary artery without angina pectoris; L97.509 Non-pressure chronic ulcer of other part of unspecified foot with unspecified severity; I11.0 Hypertensive heart disease with heart failure; I35.0 Nonrheumatic aortic (valve) stenosis; I48.91 Unspecified atrial fibrillation; E03.9 Hypothyroidism, unspecified; Z96.653 Presence of artificial knee joint, bilateral; Z95.2 Presence of prosthetic heart valve; Z79.4 Long term (current) use of insulin; Z79.899 Other long term (current) drug therapy; Z88.5 Allergy status to narcotic agent; R00.0 Tachycardia, unspecified

== ENCOUNTER → 2022-12-03 | Outpatient (REF) ==
[~2022-12-03] MED LIST changes: +ACET-907 PO; +ACET500T15 PO; +ALBU8.5H INH; +ASPI-161 PO; +ASPI81TAEC PO; +ATIV1TAB10 PO; +BENZ-18 PO; +BISA10SU4 PR; +CEFE2INJ2 IV; +DILT120C89 PO; +FERR1TAB8 PO; +FLEEENE12 PR; +GLUC1KIT IM; +GUAI100S51 PO; +HYOS125TA PO; +JUVE1POW PO; +METO25TA4 PO; +MILKSUS3 PO; +MORP1SOL5 PO; +PANT-23 PO; +SYNT88TA2 PO; +TORS20TA2 PO; +VANC1INJ37 IV; +VITMTA PO
== END ==
PROVIDERS: ATTEND Physician Assistant
DX: M86.9 Osteomyelitis, unspecified (principal)

== ENCOUNTER → 2022-12-04 | Outpatient (REF) ==
[2022-12-04 12:28] LABS: C REACTIVE PROTEIN QUANTITATIV 2.5 MG/DL (<1.0)
[2022-12-04 12:29] LABS: CREATININE FOR GFR 1.3 MG/DL (0.70-1.30); GLOMERULAR FILTRATION RATE 55.5 (>35); POTASSIUM SERUM 3.9 MMOL/L (3.5-5.1)
[2022-12-04 12:54] LABS: HEMATOCRIT 32.4 % (42.0-52.0); HEMOGLOBIN 10.1 g/dl (13.5-17.5); MEAN CORPUSCULAR HEMOGLOBIN 25.2 pg (27.0-33.0); MEAN CORPUSCULAR HGB CONC 31.2 g/dl (32.0-36.5); MEAN CORPUSCULAR VOLUME 80.8 fl (80.0-96.0); PLATELET COUNT, AUTOMATED 210 10^3/uL (150-450); RED BLOOD COUNT 4.01 10^6/uL (4.30-6.10); WHITE BLOOD COUNT 10.1 10^3/uL (4.0-10.0)
[2022-12-04 13:00] LABS: ERYTHROCYTE SEDIMENTATION RATE 95 mm/hr (0-20)
== END ==
PROVIDERS: ATTEND Physician Assistant
DX: M86.9 Osteomyelitis, unspecified (principal)

== ENCOUNTER → 2022-12-11 | Outpatient (REF) ==
[2022-12-11 13:08] LABS: HEMATOCRIT 36.8 % (42.0-52.0); HEMOGLOBIN 11.3 g/dl (13.5-17.5); MEAN CORPUSCULAR HEMOGLOBIN 24.7 pg (27.0-33.0); MEAN CORPUSCULAR HGB CONC 30.7 g/dl (32.0-36.5); MEAN CORPUSCULAR VOLUME 80.5 fl (80.0-96.0); PLATELET COUNT, AUTOMATED 229 10^3/uL (150-450); RED BLOOD COUNT 4.57 10^6/uL (4.30-6.10); WHITE BLOOD COUNT 8.9 10^3/uL (4.0-10.0)
[2022-12-11 13:32] LABS: ERYTHROCYTE SEDIMENTATION RATE 117 mm/hr (0-20)
[2022-12-11 13:33] LABS: C REACTIVE PROTEIN QUANTITATIV 4.1 MG/DL (<1.0)
[2022-12-11 13:34] LABS: CALCIUM LEVEL 8.2 MG/DL (8.3-10.6); GLOMERULAR FILTRATION RATE 21.1 (>35); POTASSIUM SERUM 3.8 MMOL/L (3.5-5.1)
[2022-12-11 14:13] LABS: VANCOMYCIN LEVEL TROUGH 31.9 UG/ML (10.0-20.0)
== END ==
PROVIDERS: ATTEND Physician Assistant
DX: M86.9 Osteomyelitis, unspecified (principal)

== ENCOUNTER 2022-12-12 09:36 | Observation (INO) | payer MEDICARE, BC ==
[~2022-12-12] VITALS: Ht 182.9 cm; Wt 97.2 kg
[~2022-12-12 09:36] MED LIST changes: -ACET500T15 PO; -ASPI-161 PO; -ATIV1TAB10 PO; -BENZ-18 PO; -BISA10SU4 PR; -CEFE2INJ2 IV; -FERR1TAB8 PO; -FLEEENE12 PR; -GLUC1KIT IM; -GUAI100S51 PO; -HEPARIN 1,000UNITS/ML 10ML VIAL (FOR RADIOLOGY & DIALYSIS ONLY) As Ordered ONE; -HYOS125TA PO; -ISOVUE-300 61% 100ML VIAL As Ordered ONE; -JUVE1POW PO; -LIDOCAINE 1% MDV 20ML VIAL As Ordered ONE; -METO25TA4 PO; -MIDAZOLAM INJ 2MG/2ML VIAL As Ordered ONE; -MILKSUS3 PO; -MORP1SOL5 PO; -PANT-23 PO; -TORS20TA2 PO; -VANC1INJ37 IV; -VITMTA PO; -ceFAZolin 2 GM/D5W 50 ML IV BAG As Ordered ONE; -fentaNYL 100 MCG/2 ML INJECTION As Ordered ONE
[2022-12-12] MEDS ORDERED: NS 500 ML IV ONE (10:35)
[2022-12-12] MEDS ORDERED: FERR1TAB8 PO (12:41)
[2022-12-12] MEDS ORDERED: ASPI-161 PO (12:41)
[2022-12-12] MEDS ORDERED: FINA5TAB2 PO (12:41)
[2022-12-12] MEDS ORDERED: NS 1,000 ML IV SCH (12:45)
[2022-12-12] MEDS ORDERED: TORS20TA2 PO (13:33)
[2022-12-12] MEDS ORDERED: METO25TA4 PO (13:33)
[2022-12-12] MEDS ORDERED: METF500T13 PO (13:33)
[2022-12-12] MEDS ORDERED: PANT-23 PO (13:33)
[2022-12-12] MEDS ORDERED: VITMTA PO (13:33)
[2022-12-12 14:15] VITALS: BP 116/64
[2022-12-12] MEDS ORDERED: MILKSUS3 PO (14:18)
[2022-12-12] MEDS ORDERED: ACET500T15 PO (14:18)
[2022-12-12] MEDS ORDERED: CEFE2INJ2 IV (14:18)
[2022-12-12] MEDS ORDERED: BISA10SU4 PR (14:18)
[2022-12-12] MEDS ORDERED: BENZ-18 PO (14:18)
[2022-12-12] MEDS ORDERED: FLEEENE12 PR (14:18)
[2022-12-12] MEDS ORDERED: JUVE1POW PO (14:18)
[2022-12-12] MEDS ORDERED: GUAI100S51 PO (14:18)
[2022-12-12] MEDS ORDERED: GLUC1KIT IM (14:18)
[2022-12-12] MEDS ORDERED: VANC1INJ37 IV (14:18)
[2022-12-12] MEDS ORDERED: HOME MED LIST COMPLETE! XX SCH (14:20)
[2022-12-12] MEDS ORDERED: MORP1SOL5 PO (14:48)
[2022-12-12] MEDS ORDERED: HYOS125TA PO (14:48)
[2022-12-12] MEDS ORDERED: ATIV1TAB10 PO (14:48)
== END 2022-12-12 17:10 | disposition home or self-care (01) ==
LOC: M ED 09:36 → INTOOBSV 12:47 → M ED INP 12:47 → ENRESERV 14:14
PROVIDERS: ADMIT Internal Medicine; ATTEND Internal Medicine
DX: G93.40 Encephalopathy, unspecified (principal); N17.9 Acute kidney failure, unspecified; E86.0 Dehydration; D72.829 Elevated white blood cell count, unspecified; R94.31 Abnormal electrocardiogram [ECG] [EKG]; R33.9 Retention of urine, unspecified; I48.0 Paroxysmal atrial fibrillation; E11.40 Type 2 diabetes mellitus with diabetic neuropathy, unspecified; E78.00 Pure hypercholesterolemia, unspecified; E03.9 Hypothyroidism, unspecified; I10 Essential (primary) hypertension; I25.10 Atherosclerotic heart disease of native coronary artery without angina pectoris; I35.0 Nonrheumatic aortic (valve) stenosis; I70.213 Atherosclerosis of native arteries of extremities with intermittent claudication, bilateral legs; L97.529 Non-pressure chronic ulcer of other part of left foot with unspecified severity; Z95.1 Presence of aortocoronary bypass graft; Z98.61 Coronary angioplasty status; Z79.4 Long term (current) use of insulin; Z79.84 Long term (current) use of oral hypoglycemic drugs; Z79.01 Long term (current) use of anticoagulants; Z79.899 Other long term (current) drug therapy; Z88.5 Allergy status to narcotic agent
CPT/HCPCS: 36415; 70450; 71045; 74176; 80048; 83735; 85027; 85610; 86850; 86900; 86901; 87040; 87635; 93005; 96374; 99285; G0378; J0690; J1644

== ENCOUNTER → 2022-12-12 | Outpatient (CLI) | payer MEDICARE, BC ==
[~2022-12-12] MED LIST changes: +HEPARIN 1,000UNITS/ML 10ML VIAL (FOR RADIOLOGY & DIALYSIS ONLY) As Ordered ONE; +ISOVUE-300 61% 100ML VIAL As Ordered ONE; +LIDOCAINE 1% MDV 20ML VIAL As Ordered ONE; +MIDAZOLAM INJ 2MG/2ML VIAL As Ordered ONE; +ceFAZolin 2 GM/D5W 50 ML IV BAG As Ordered ONE; +fentaNYL 100 MCG/2 ML INJECTION As Ordered ONE
[2022-12-12 08:25] VITALS: BP 130/72
[2022-12-12 08:44] LABS: HEMATOCRIT 34.7 % (42.0-52.0); HEMOGLOBIN 10.9 g/dl (13.5-17.5); MEAN CORPUSCULAR HEMOGLOBIN 25.1 pg (27.0-33.0); MEAN CORPUSCULAR HGB CONC 31.4 g/dl (32.0-36.5); PLATELET COUNT, AUTOMATED 236 10^3/uL (150-450); RED BLOOD COUNT 4.34 10^6/uL (4.30-6.10); WHITE BLOOD COUNT 11.2 10^3/uL (4.0-10.0)
[2022-12-12 09:10] LABS: CALCIUM LEVEL 9.1 MG/DL (8.3-10.6); CREATININE FOR GFR 4.01 MG/DL (0.70-1.30); GLOMERULAR FILTRATION RATE 15.1 (>35); MAGNESIUM LEVEL 1.6 MG/DL (1.8-2.4); POTASSIUM SERUM 3.7 MMOL/L (3.5-5.1)
[2022-12-12 09:31] LABS: INR 1.41; PROTHROMBIN TIME 17.5 SECONDS (12.5-14.5)
== END ==
LOC: M IRPRO 08:06
PROVIDERS: ATTEND Surgery Vascular Surgery
DX: I70.213 Atherosclerosis of native arteries of extremities with intermittent claudication, bilateral legs (principal); N17.9 Acute kidney failure, unspecified; L97.529 Non-pressure chronic ulcer of other part of left foot with unspecified severity; Z88.5 Allergy status to narcotic agent
CPT/HCPCS: 80048; 83735; 85027; 85610; 86850; 86900; 86901; 87635; J0690; J1644

== ENCOUNTER → 2022-12-13 | Outpatient (REF) ==
[~2022-12-13] MED LIST changes: +ACET500T15 PO; +ASPI-161 PO; +ATIV1TAB10 PO; +BENZ-18 PO; +BISA10SU4 PR; +CEFE2INJ2 IV; +FERR1TAB8 PO; +FLEEENE12 PR; +GLUC1KIT IM; +GUAI100S51 PO; +HYOS125TA PO; +JUVE1POW PO; +METO25TA4 PO; +MILKSUS3 PO; +MORP1SOL5 PO; +PANT-23 PO; +TORS20TA2 PO; +VANC1INJ37 IV; +VITMTA PO
== END ==
PROVIDERS: ATTEND Physician Assistant
DX: M86.9 Osteomyelitis, unspecified (principal); Z53.8 Procedure and treatment not carried out for other reasons

== ENCOUNTER → 2022-12-13 | Outpatient (REF) | PROVIDERS: ATTEND Physician Assistant | DX: M86.9 Osteomyelitis, unspecified (principal); Z53.8 Procedure and treatment not carried out for other reasons ==

== ENCOUNTER → 2022-12-13 | Outpatient (REF) | PROVIDERS: ATTEND Physician Assistant | DX: M86.9 Osteomyelitis, unspecified (principal) ==

== ENCOUNTER → 2022-12-15 | Outpatient (REF) ==
[2022-12-15 07:54] LABS: HEMATOCRIT 32.8 % (42.0-52.0); HEMOGLOBIN 10.5 g/dl (13.5-17.5); MEAN CORPUSCULAR HEMOGLOBIN 26.1 pg (27.0-33.0); MEAN CORPUSCULAR VOLUME 81.4 fl (80.0-96.0); PLATELET COUNT, AUTOMATED 217 10^3/uL (150-450); RED BLOOD COUNT 4.03 10^6/uL (4.30-6.10); WHITE BLOOD COUNT 8.2 10^3/uL (4.0-10.0)
[2022-12-15 07:55] LABS: C REACTIVE PROTEIN QUANTITATIV 16.9 MG/DL (<1.0)
[2022-12-15 07:56] LABS: CALCIUM LEVEL 8.4 MG/DL (8.3-10.6); CREATININE FOR GFR 5.49 MG/DL (0.70-1.30); GLOMERULAR FILTRATION RATE 10.5 (>35); VANCOMYCIN LEVEL TROUGH 24.4 UG/ML (10.0-20.0)
[2022-12-15 08:24] LABS: ERYTHROCYTE SEDIMENTATION RATE > 130 mm/hr (0-20)
== END ==
PROVIDERS: ATTEND Physician Assistant
DX: N17.9 Acute kidney failure, unspecified (principal); M86.9 Osteomyelitis, unspecified; G93.40 Encephalopathy, unspecified

== ENCOUNTER → 2022-12-18 | Outpatient (REF) ==
[2022-12-18 19:02] LABS: HEMATOCRIT 33.4 % (42.0-52.0); HEMOGLOBIN 10.4 g/dl (13.5-17.5); MEAN CORPUSCULAR HEMOGLOBIN 25.2 pg (27.0-33.0); MEAN CORPUSCULAR HGB CONC 31.1 g/dl (32.0-36.5); MEAN CORPUSCULAR VOLUME 80.9 fl (80.0-96.0); PLATELET COUNT, AUTOMATED 245 10^3/uL (150-450); RED BLOOD COUNT 4.13 10^6/uL (4.30-6.10); WHITE BLOOD COUNT 8.2 10^3/uL (4.0-10.0)
[2022-12-18 19:15] LABS: VANCOMYCIN LEVEL TROUGH 20.6 UG/ML (10.0-20.0)
[2022-12-18 19:32] LABS: ALBUMIN 2.2 G/DL (3.2-5.2); BILIRUBIN,DIRECT 0.1 MG/DL (<0.4); BILIRUBIN,TOTAL 0.2 MG/DL (0.3-1.2); CALCIUM LEVEL 8.1 MG/DL (8.3-10.6); CREATININE FOR GFR 5.62 MG/DL (0.70-1.30); GLOMERULAR FILTRATION RATE 10.2 (>35); POTASSIUM SERUM 4.9 MMOL/L (3.5-5.1); TOTAL PROTEIN 6.3 G/DL (5.7-8.2)
[2022-12-18 21:42] LABS: C REACTIVE PROTEIN QUANTITATIV 12.8 MG/DL (<1.0)
== END ==
PROVIDERS: ATTEND Physician Assistant
DX: R41.82 Altered mental status, unspecified (principal)

== ENCOUNTER → 2022-12-25 | Outpatient (REF) | payer MEDICARE, BC ==
[2022-12-25 15:53] LABS: HEMATOCRIT 34.2 % (42.0-52.0); HEMOGLOBIN 10.5 g/dl (13.5-17.5); MEAN CORPUSCULAR HEMOGLOBIN 25.5 pg (27.0-33.0); MEAN CORPUSCULAR HGB CONC 30.7 g/dl (32.0-36.5); PLATELET COUNT, AUTOMATED 244 10^3/uL (150-450); RED BLOOD COUNT 4.12 10^6/uL (4.30-6.10); WHITE BLOOD COUNT 8.3 10^3/uL (4.0-10.0)
[2022-12-25 20:00] LABS: C REACTIVE PROTEIN QUANTITATIV 4.7 MG/DL (<1.0)
[2022-12-25 20:01] LABS: VANCOMYCIN LEVEL TROUGH 9.8 UG/ML (10.0-20.0)
[2022-12-25 20:02] LABS: CALCIUM LEVEL 8.8 MG/DL (8.3-10.6); CREATININE FOR GFR 2.58 MG/DL (0.70-1.30); GLOMERULAR FILTRATION RATE 25.1 (>35); POTASSIUM SERUM 4.8 MMOL/L (3.5-5.1)
== END ==
PROVIDERS: ATTEND Physician Assistant
DX: N18.9 Chronic kidney disease, unspecified (principal)

== ENCOUNTER → 2022-12-27 | Outpatient (REF) | payer MEDICARE, BC ==
[2022-12-27 11:14] LABS: HEMATOCRIT 36.8 % (42.0-52.0); HEMOGLOBIN 11.4 g/dl (13.5-17.5); MEAN CORPUSCULAR HEMOGLOBIN 25.6 pg (27.0-33.0); MEAN CORPUSCULAR VOLUME 82.7 fl (80.0-96.0); PLATELET COUNT, AUTOMATED 249 10^3/uL (150-450); RED BLOOD COUNT 4.45 10^6/uL (4.30-6.10); WHITE BLOOD COUNT 8.1 10^3/uL (4.0-10.0)
[2022-12-27 11:52] LABS: CALCIUM LEVEL 9.4 MG/DL (8.3-10.6); CREATININE FOR GFR 2.19 MG/DL (0.70-1.30); GLOMERULAR FILTRATION RATE 30.4 (>35)
[2022-12-27 12:41] LABS: ERYTHROCYTE SEDIMENTATION RATE 95 mm/hr (0-20)
[2022-12-27 18:16] LABS: C REACTIVE PROTEIN QUANTITATIV 3.2 MG/DL (<1.0)
== END ==
PROVIDERS: ATTEND Physician Assistant
DX: N19 Unspecified kidney failure (principal)

== ENCOUNTER → 2023-01-01 | Outpatient (REF) | payer MEDICARE, BC ==
[2023-01-01 09:45] LABS: PERCENT SATURATION 23.9 % (19.7-50.0)
[2023-01-01 09:47] LABS: TOTAL 25(OH) VITAMIN D 26.4 NG/ML (20.0-100.0)
== END ==
PROVIDERS: ATTEND Physician Assistant
DX: D64.9 Anemia, unspecified (principal); Z79.899 Other long term (current) drug therapy

== ENCOUNTER → 2023-01-02 | Outpatient (REF) | payer MEDICARE, BC | PROVIDERS: ATTEND Physician Assistant | DX: N19 Unspecified kidney failure (principal); Z53.8 Procedure and treatment not carried out for other reasons ==

== ENCOUNTER → 2023-01-02 | Outpatient (REF) | payer MEDICARE, BC | PROVIDERS: ATTEND Physician Assistant | DX: N19 Unspecified kidney failure (principal); Z53.8 Procedure and treatment not carried out for other reasons ==

== ENCOUNTER → 2023-01-03 | Outpatient (REF) | payer MEDICARE, BC ==
[2023-01-03 09:36] LABS: HEMATOCRIT 34.1 % (42.0-52.0); HEMOGLOBIN 10.7 g/dl (13.5-17.5); MEAN CORPUSCULAR HEMOGLOBIN 25.8 pg (27.0-33.0); MEAN CORPUSCULAR HGB CONC 31.4 g/dl (32.0-36.5); MEAN CORPUSCULAR VOLUME 82.4 fl (80.0-96.0); PLATELET COUNT, AUTOMATED 226 10^3/uL (150-450); RED BLOOD COUNT 4.14 10^6/uL (4.30-6.10); WHITE BLOOD COUNT 6.8 10^3/uL (4.0-10.0)
[2023-01-03 09:50] LABS: ERYTHROCYTE SEDIMENTATION RATE 59 mm/hr (0-20)
[2023-01-03 09:55] LABS: C REACTIVE PROTEIN QUANTITATIV 1.4 MG/DL (<1.0)
[2023-01-03 09:58] LABS: CALCIUM LEVEL 8.8 MG/DL (8.3-10.6); CREATININE FOR GFR 1.51 MG/DL (0.70-1.30); GLOMERULAR FILTRATION RATE 46.7 (>35); POTASSIUM SERUM 4.2 MMOL/L (3.5-5.1)
== END ==
PROVIDERS: ATTEND Physician Assistant
DX: N19 Unspecified kidney failure (principal)

== ENCOUNTER → 2023-01-31 | Outpatient (REF) | payer MEDICARE, BC ==
[2023-01-31 15:39] LABS: APPEARANCE, URINE MANUAL TURBID (CLEAR); COLOR, URINE MANUAL PINK (YELLOW)
[2023-01-31 15:43] LABS: BILIRUBIN, URINE MANUAL NEGATIVE (NEGATIVE); BLOOD URINE MANUAL POSITIVE (NEGATIVE); GLUCOSE, URINE (UA) MANUAL 4+(1000 MG/DL) mg/dL (NEGATIVE); KETONE, URINE MANUAL NEGATIVE (NEGATIVE); LEUKOCYTE ESTERASE, URINE MAN POSITIVE (NEGATIVE); NITRITE, URINE MANUAL NEGATIVE (NEGATIVE); PROTEIN, URINE MANUAL 3+ mg/dL (NEGATIVE); UROBILINOGEN, URINE MANUAL NORMAL (NORMAL)
[2023-01-31 15:53] LABS: BACTERIA, URINE SMALL AMOUNT; HYALINE CAST, URINE NONE SEEN /lpf (0-1); RBC, URINE TNTC /hpf (0-3); SQUAMOUS EPITHELIAL CELL URINE SMALL AMOUNT /hpf (SMALL AMT); WBC, URINE TNTC /hpf (0-3)
== END ==
PROVIDERS: ATTEND Internal Medicine
DX: N39.0 Urinary tract infection, site not specified (principal)

== ENCOUNTER → 2023-02-26 | Outpatient (REF) | payer MEDICARE, BC ==
[2023-02-26 19:03] LABS: HEMATOCRIT 36.2 % (42.0-52.0); MEAN CORPUSCULAR HEMOGLOBIN 27.7 pg (27.0-33.0); MEAN CORPUSCULAR HGB CONC 30.4 g/dl (32.0-36.5); MEAN CORPUSCULAR VOLUME 91.2 fl (80.0-96.0); PLATELET COUNT, AUTOMATED 159 10^3/uL (150-450); RED BLOOD COUNT 3.97 10^6/uL (4.30-6.10); WHITE BLOOD COUNT 8.3 10^3/uL (4.0-10.0)
[2023-02-26 19:09] LABS: CALCIUM LEVEL 9.3 MG/DL (8.3-10.6); CREATININE FOR GFR 1.32 MG/DL (0.70-1.30); GLOMERULAR FILTRATION RATE 54.5 (>35); POTASSIUM SERUM 4.6 MMOL/L (3.5-5.1)
== END ==
PROVIDERS: ATTEND Internal Medicine
DX: R53.83 Other fatigue (principal)